=== PATIENT | female | born 1950 | race Hispanic/Latino ===

== ENCOUNTER → 2019-11-26 09:07 | Outpatient (CLI) | payer MEDICARE, MEDICAID, SELFPAY ==
[2019-11-26 10:43] LABS: Alanine Aminotransferase 58 IU/L (<35); Albumin 4.1 g/dL (3.5-5.0); Albumin Globulin Ratio 1.3 (1.0-2.8); Alkaline Phosphatase 91 U/L (38-126); Aspartate Aminotransferase 40 IU/L (14-36); Bilirubin Total 0.5 mg/dL (0.2-1.3); Blood Urea Nitrogen 14 mg/dL (7-17); Calcium 9.3 mg/dL (8.4-10.2); Carbon Dioxide 28 mmol/L (22-32); Chloride 101 mmol/L (98-107); Cholesterol 173 mg/dL (140-199); Estimated Glomerular Filt Rate > 60.0 mL/min (>60); Globulin 3.2 g/dL (1.7-4.1); Glucose 287 mg/dL (80-110); HDL Cholesterol 32 mg/dL (40-60); HEMOLYSIS < 15 (0-50); LDL Cholesterol Calculated 102 mg/dL (<100); Potassium 4.8 mmol/L (3.4-5.1); Sodium 138 mmol/L (137-145); Total Protein 7.3 g/dL (6.3-8.2); Triglycerides 194 mg/dL (35-150)
== END ==
PROVIDERS: PCP Nurse Practitioner; Referring Provider Nurse Practitioner; Visit Provider Nurse Practitioner
DX: E78.5 Hyperlipidemia, unspecified (principal); I10 Essential (primary) hypertension; Z91.14 Patient's other noncompliance with medication regimen
CPT/HCPCS: 36415; 80053; 80061; 84439; 84443; 84481

== ENCOUNTER → 2020-03-15 09:14 | Outpatient (CLI) | payer MEDICARE, MEDICAID, SELFPAY ==
[2020-03-15 10:00] LABS: Hemoglobin A1C% w Est Avg Glu 7.9 % (4.0-6.0)
[2020-03-15 10:34] LABS: Alanine Aminotransferase 65 IU/L (<35); Albumin 4.5 g/dL (3.5-5.0); Albumin Globulin Ratio 1.5 (1.0-2.8); Alkaline Phosphatase 66 U/L (38-126); Aspartate Aminotransferase 45 IU/L (14-36); Bilirubin Total 0.5 mg/dL (0.2-1.3); Bilirubin Unconjugated 0.5 mg/dL (0.0-1.1); Cholesterol 118 mg/dL (140-199); Glucose 151 mg/dL (80-110); HDL Cholesterol 38 mg/dL (40-60); HEMOLYSIS < 15 (0-50); LDL Cholesterol Calculated 45 mg/dL (<100); Total Protein 7.5 g/dL (6.3-8.2); Triglycerides 177 mg/dL (35-150)
[2020-03-17 08:36] LABS: HBsAg Screen Negative (Negative); HCV RNA 26300000 IU/mL (.); Hepatitis A Antibody IgM Negative (Negative); Hepatitis B Core Antibody IgM Negative (Negative); Hepatitis C Antibody >11.0 s/co ratio (0.0-0.9); Hepatitis C Quant See Final Results IU/mL (.)
== END ==
PROVIDERS: PCP Nurse Practitioner; Referring Provider Nurse Practitioner; Visit Provider Nurse Practitioner
DX: E78.5 Hyperlipidemia, unspecified (principal); I10 Essential (primary) hypertension; E11.9 Type 2 diabetes mellitus without complications
CPT/HCPCS: 36415; 80061; 80074; 80076; 82947; 83036

== ENCOUNTER → 2020-04-09 09:25 | Outpatient (CLI) | payer MEDICARE, MEDICAID, SELFPAY ==
[2020-04-09 10:49] LABS: Add Manual Diff / Slide Review NO; Basophils Absolute Auto 0 /uL (0-100); Basophils Percent Auto 1.2 % (0-2); Eosinophils Absolute Auto 200 /uL (0-450); Hematocrit 37.4 % (36-46); Hemoglobin 12.6 g/dL (12.0-16.0); Lymphocytes Absolute Auto 1400 /uL (1100-4500); Lymphocytes Percent Auto 36.9 % (25-40); Mean Corpuscular HGB Conc 33.7 % (30-36); Mean Corpuscular Volume 91.8 fL (80-100); Monocytes Absolute Auto 200 /uL (0-900); Monocytes Percent Auto 6.5 % (3-14); Neutrophils Absolute Auto 1900 /uL (1500-7000); Neutrophils Percent Auto 50.4 % (50-75); Platelet Count 169 X10^3/uL (150-400); Red Blood Cell Count 4.08 X10^6/uL (4.0-5.2); Red Cell Distribution Width 12.5 % (11.6-14.8); White Blood Cell Count 3.8 X10^3/uL (4.5-11.0)
[2020-04-09 10:59] LABS: Alanine Aminotransferase 76 IU/L (<35); Albumin 4.3 g/dL (3.5-5.0); Albumin Globulin Ratio 1.6 (1.0-2.8); Alkaline Phosphatase 62 U/L (38-126); Aspartate Aminotransferase 55 IU/L (14-36); BUN Creatinine Ratio 23.5 (6-22); Bilirubin Total 0.5 mg/dL (0.2-1.3); Blood Urea Nitrogen 16 mg/dL (7-17); Calcium 9.4 mg/dL (8.4-10.2); Carbon Dioxide 24 mmol/L (22-32); Chloride 104 mmol/L (98-107); Estimated Glomerular Filt Rate > 60.0 mL/min (>60); Globulin 2.7 g/dL (1.7-4.1); Glucose 159 mg/dL (80-110); HEMOLYSIS < 15 (0-50); Potassium 4.2 mmol/L (3.4-5.1); Sodium 138 mmol/L (137-145)
[2020-04-10 07:36] LABS: Hepatitis B Surf Ab Qualitativ Non Reactive (.)
[2020-04-15 19:10] LABS: Hepatitis C Genoype 1a (.)
== END ==
PROVIDERS: PCP Nurse Practitioner; Referring Provider Nurse Practitioner; Visit Provider Physician Assistant
DX: B18.2 Chronic viral hepatitis C (principal)
CPT/HCPCS: 36415; 80053; 85025; 86706

== ENCOUNTER → 2020-05-26 08:08 | Outpatient (CLI) | payer MEDICARE, MEDICAID, SELFPAY ==
[2020-05-26 08:39] LABS: Hemoglobin A1C% w Est Avg Glu 8.9 % (4.0-6.0)
[2020-05-26 08:49] LABS: Alanine Aminotransferase 82 IU/L (<35); Albumin 4.2 g/dL (3.5-5.0); Albumin Globulin Ratio 1.4 (1.0-2.8); Alkaline Phosphatase 64 U/L (38-126); Aspartate Aminotransferase 47 IU/L (14-36); Bilirubin Total 0.5 mg/dL (0.2-1.3); Bilirubin Unconjugated 0.4 mg/dL (0.0-1.1); Cholesterol 115 mg/dL (140-199); Globulin 2.9 g/dL (1.7-4.1); Glucose 197 mg/dL (80-110); HDL Cholesterol 43 mg/dL (40-60); HEMOLYSIS < 15 (0-50); LDL Cholesterol Calculated 41 mg/dL (<100); Total Protein 7.1 g/dL (6.3-8.2); Triglycerides 157 mg/dL (35-150)
== END ==
PROVIDERS: PCP Nurse Practitioner; Referring Provider Nurse Practitioner; Visit Provider Nurse Practitioner
DX: E78.5 Hyperlipidemia, unspecified (principal); I10 Essential (primary) hypertension; M81.0 Age-related osteoporosis without current pathological fracture; R76.8 Other specified abnormal immunological findings in serum
CPT/HCPCS: 36415; 80061; 80076; 82947; 83036

== ENCOUNTER → 2020-07-13 09:01 | Outpatient (CLI) | payer MEDICARE, MEDICAID, SELFPAY ==
[2020-07-13 09:30] LABS: Add Manual Diff / Slide Review NO; Basophils Absolute Auto 0 /uL (0-100); Basophils Percent Auto 0.7 % (0-2); Eosinophils Absolute Auto 200 /uL (0-450); Eosinophils Percent Auto 5.3 % (2-4); Hematocrit 38.7 % (36-46); Hemoglobin 13.2 g/dL (12.0-16.0); Lymphocytes Absolute Auto 1800 /uL (1100-4500); Lymphocytes Percent Auto 41.6 % (25-40); Mean Corpuscular Hemoglobin 30.5 PG (26-34); Mean Corpuscular Volume 89.7 fL (80-100); Monocytes Absolute Auto 400 /uL (0-900); Monocytes Percent Auto 8.4 % (3-14); Neutrophils Absolute Auto 1900 /uL (1500-7000); Platelet Count 174 X10^3/uL (150-400); Red Blood Cell Count 4.32 X10^6/uL (4.0-5.2); Red Cell Distribution Width 12.1 % (11.6-14.8); White Blood Cell Count 4.3 X10^3/uL (4.5-11.0)
[2020-07-13 09:49] LABS: Alanine Aminotransferase 20 IU/L (<35); Albumin 4.4 g/dL (3.5-5.0); Albumin Globulin Ratio 1.2 (1.0-2.8); Alkaline Phosphatase 73 U/L (38-126); Aspartate Aminotransferase 25 IU/L (14-36); BUN Creatinine Ratio 31.3 (6-22); Bilirubin Total 0.4 mg/dL (0.2-1.3); Blood Urea Nitrogen 26 mg/dL (7-17); Calcium 9.7 mg/dL (8.4-10.2); Carbon Dioxide 25 mmol/L (22-32); Chloride 103 mmol/L (98-107); Estimated Glomerular Filt Rate > 60.0 mL/min (>60); Globulin 3.6 g/dL (1.7-4.1); Glucose 142 mg/dL (80-110); HEMOLYSIS < 15 (0-50); Potassium 4.5 mmol/L (3.4-5.1); Sodium 139 mmol/L (137-145)
== END ==
PROVIDERS: PCP Nurse Practitioner; Referring Provider Nurse Practitioner; Visit Provider Nurse Practitioner
DX: B18.2 Chronic viral hepatitis C (principal)
CPT/HCPCS: 36415; 80053; 85025; 87522

== ENCOUNTER → 2020-08-10 07:16 | Outpatient (CLI) | payer MEDICARE, MEDICAID, SELFPAY ==
[2020-08-10 08:49] LABS: Add Manual Diff / Slide Review NO; Basophils Absolute Auto 0 /uL (0-100); Basophils Percent Auto 0.6 % (0-2); Eosinophils Absolute Auto 200 /uL (0-450); Eosinophils Percent Auto 4.7 % (2-4); Hematocrit 38.1 % (36-46); Hemoglobin 12.9 g/dL (12.0-16.0); Lymphocytes Absolute Auto 1900 /uL (1100-4500); Lymphocytes Percent Auto 40.7 % (25-40); Mean Corpuscular HGB Conc 33.9 % (30-36); Mean Corpuscular Hemoglobin 30.7 PG (26-34); Mean Corpuscular Volume 90.6 fL (80-100); Monocytes Absolute Auto 300 /uL (0-900); Monocytes Percent Auto 6.9 % (3-14); Neutrophils Absolute Auto 2200 /uL (1500-7000); Neutrophils Percent Auto 47.1 % (50-75); Platelet Count 183 X10^3/uL (150-400); Red Blood Cell Count 4.21 X10^6/uL (4.0-5.2); Red Cell Distribution Width 12.3 % (11.6-14.8); White Blood Cell Count 4.8 X10^3/uL (4.5-11.0)
[2020-08-10 09:07] LABS: Alanine Aminotransferase 15 IU/L (<35); Albumin 4.2 g/dL (3.5-5.0); Albumin Globulin Ratio 1.2 (1.0-2.8); Alkaline Phosphatase 70 U/L (38-126); Aspartate Aminotransferase 20 IU/L (14-36); BUN Creatinine Ratio 40.3 (6-22); Bilirubin Total 0.4 mg/dL (0.2-1.3); Blood Urea Nitrogen 25 mg/dL (7-17); Calcium 9.3 mg/dL (8.4-10.2); Carbon Dioxide 28 mmol/L (22-32); Chloride 104 mmol/L (98-107); Cholesterol 143 mg/dL (140-199); Estimated Glomerular Filt Rate > 60.0 mL/min (>60); Globulin 3.5 g/dL (1.7-4.1); Glucose 121 mg/dL (80-110); HDL Cholesterol 30 mg/dL (40-60); HEMOLYSIS < 15 (0-50); LDL Cholesterol Calculated 80 mg/dL (<100); Sodium 137 mmol/L (137-145); Total Protein 7.7 g/dL (6.3-8.2); Triglycerides 164 mg/dL (35-150)
[2020-08-10 09:22] LABS: Hemoglobin A1C% w Est Avg Glu 7.6 % (4.0-6.0)
[2020-08-10 09:25] LABS: Microalbumi Creatinin Ratio Ur 4.4 ug/mg CR (<30); Microalbumin Urine Random 0.8 mg/dL (0-1.6)
[2020-08-10 09:52] LABS: Hep C Virus Ab w/Reflex Quant REACTIVE s/c (NEGATIVE)
== END ==
PROVIDERS: PCP Nurse Practitioner; Referring Provider Physician Assistant; Visit Provider Physician Assistant
DX: B18.2 Chronic viral hepatitis C (principal); E78.5 Hyperlipidemia, unspecified; I10 Essential (primary) hypertension; Z79.899 Other long term (current) drug therapy
CPT/HCPCS: 36415; 80053; 80061; 82043; 82570; 83036; 85025; 86803

== ENCOUNTER → 2020-08-17 | Outpatient (CLI) | payer MEDICARE, MEDICAID, SELFPAY | PROVIDERS: PCP Nurse Practitioner; Referring Provider Physician Assistant; Visit Provider Physician Assistant | DX: B18.2 Chronic viral hepatitis C (principal) | CPT/HCPCS: 87522 ==

== ENCOUNTER → 2020-10-26 14:31 | Outpatient (CLI) | payer MEDICARE, MEDICAID, SELFPAY ==
[2020-10-26] MEDS: COVID-19 VACC #1, MRNA(MOD) 100 MCG/0.5 ML VIAL IM (14:38)
== END ==
PROVIDERS: PCP Nurse Practitioner; Visit Provider Internal Medicine
DX: Z23 Encounter for immunization (principal)
CPT/HCPCS: 0011A; 91301

== ENCOUNTER → 2020-11-15 08:24 | Outpatient (CLI) | payer MEDICARE, MEDICAID, SELFPAY ==
[2020-11-15 08:55] LABS: Add Manual Diff / Slide Review NO; Basophils Absolute Auto 0 /uL (0-100); Basophils Percent Auto 0.8 % (0-2); Eosinophils Absolute Auto 300 /uL (0-450); Eosinophils Percent Auto 5.6 % (2-4); Hematocrit 39.3 % (36-46); Hemoglobin 13.1 g/dL (12.0-16.0); Lymphocytes Absolute Auto 2000 /uL (1100-4500); Lymphocytes Percent Auto 41.9 % (25-40); Mean Corpuscular HGB Conc 33.4 % (30-36); Mean Corpuscular Hemoglobin 30.6 PG (26-34); Mean Corpuscular Volume 91.6 fL (80-100); Monocytes Absolute Auto 300 /uL (0-900); Monocytes Percent Auto 5.8 % (3-14); Neutrophils Absolute Auto 2200 /uL (1500-7000); Neutrophils Percent Auto 45.9 % (50-75); Platelet Count 175 X10^3/uL (150-400); Red Blood Cell Count 4.29 X10^6/uL (4.0-5.2); Red Cell Distribution Width 12.4 % (11.6-14.8); White Blood Cell Count 4.8 X10^3/uL (4.5-11.0)
[2020-11-15 09:16] LABS: Alanine Aminotransferase 16 IU/L (<35); Albumin 4.3 g/dL (3.5-5.0); Albumin Globulin Ratio 1.3 (1.0-2.8); Alkaline Phosphatase 64 U/L (38-126); Aspartate Aminotransferase 21 IU/L (14-36); BUN Creatinine Ratio 26.8 (6-22); Bilirubin Total 0.3 mg/dL (0.2-1.3); Blood Urea Nitrogen 19 mg/dL (7-17); Calcium 9.2 mg/dL (8.4-10.2); Carbon Dioxide 28 mmol/L (22-32); Chloride 105 mmol/L (98-107); Estimated Glomerular Filt Rate > 60.0 mL/min (>60); Globulin 3.4 g/dL (1.7-4.1); Glucose 131 mg/dL (80-110); HEMOLYSIS < 15 (0-50); Potassium 4.4 mmol/L (3.4-5.1); Sodium 137 mmol/L (137-145); Total Protein 7.7 g/dL (6.3-8.2)
== END ==
PROVIDERS: Physician Assistant; PCP Nurse Practitioner; Referring Provider Nurse Practitioner Family; Visit Provider Nurse Practitioner
DX: B18.2 Chronic viral hepatitis C (principal)
CPT/HCPCS: 36415; 80053; 82248; 85025; 87522

== ENCOUNTER → 2020-11-23 08:22 | Outpatient (CLI) | payer MEDICARE, MEDICAID, SELFPAY ==
[2020-11-23 09:11] LABS: Hemoglobin A1C% w Est Avg Glu 6.4 % (4.0-6.0)
[2020-11-23 09:17] LABS: Alanine Aminotransferase 16 IU/L (<35); Albumin 4.4 g/dL (3.5-5.0); Albumin Globulin Ratio 1.5 (1.0-2.8); Alkaline Phosphatase 65 U/L (38-126); Aspartate Aminotransferase 20 IU/L (14-36); Bilirubin Total 0.3 mg/dL (0.2-1.3); Bilirubin Unconjugated 0.4 mg/dL (0.0-1.1); Cholesterol 118 mg/dL (140-199); Glucose 118 mg/dL (80-110); HDL Cholesterol 46 mg/dL (40-60); HEMOLYSIS < 15 (0-50); LDL Cholesterol Calculated 37 mg/dL (<100); Total Protein 7.4 g/dL (6.3-8.2); Triglycerides 175 mg/dL (35-150)
== END ==
PROVIDERS: PCP Nurse Practitioner; Referring Provider Nurse Practitioner; Visit Provider Nurse Practitioner
DX: E78.5 Hyperlipidemia, unspecified (principal); Z79.899 Other long term (current) drug therapy; I10 Essential (primary) hypertension; E78.2 Mixed hyperlipidemia; Z01.83 Encounter for blood typing; Z23 Encounter for immunization
CPT/HCPCS: 36415; 80061; 80076; 82947; 83036; 86900; 86901

== ENCOUNTER → 2020-11-23 14:53 | Outpatient (CLI) | payer MEDICARE, MEDICAID, SELFPAY ==
[2020-11-23] MEDS: COVID-19 VACC #2, MRNA(MOD) 100 MCG/0.5 ML VIAL IM (15:03)
== END ==
PROVIDERS: PCP Nurse Practitioner; Visit Provider Internal Medicine
DX: Z23 Encounter for immunization (principal)
CPT/HCPCS: 0012A; 36415; 80061; 80076; 82947; 83036; 86900; 86901; 91301

== ENCOUNTER → 2020-12-06 14:28 | Outpatient (CLI) | payer MEDICARE, MEDICAID, SELFPAY ==
--- NOTE | 2020-12-06 14:30 | DI.US.S_ITS ---
PROCEDURE: US CHEST COMPARISON: None. INDICATIONS: chest mass FINDINGS: Focused ultrasound examination of upper chest at patient's reported area of palpable lump shows no diffuse soft tissue mass or fluid collection. IMPRESSION: No discrete soft tissue mass or fluid collection is seen in anterior upper chest wall. Dictated by: Walker Cornejo M.D. on 12/06/2020 at 15:10 Approved by: Walker Cornejo M.D. on 12/06/2020 at 15:12
== END ==
PROVIDERS: PCP Nurse Practitioner; Referring Provider Nurse Practitioner; Visit Provider Nurse Practitioner
DX: R22.2 Localized swelling, mass and lump, trunk (principal)
CPT/HCPCS: 76604

== ENCOUNTER → 2021-04-13 07:52 | Outpatient (CLI) | payer MEDICARE, MEDICAID, SELFPAY ==
[2021-04-13 10:11] LABS: Alanine Aminotransferase 18 IU/L (<35); Albumin 4.3 g/dL (3.5-5.0); Albumin Globulin Ratio 1.3 (1.0-2.8); Alkaline Phosphatase 61 U/L (38-126); Aspartate Aminotransferase 22 IU/L (14-36); BUN Creatinine Ratio 35.8 (6-22); Bilirubin Total 0.3 mg/dL (0.2-1.3); Blood Urea Nitrogen 24 mg/dL (7-17); Calcium 9.5 mg/dL (8.4-10.2); Carbon Dioxide 27 mmol/L (22-32); Chloride 105 mmol/L (98-107); Cholesterol 132 mg/dL (140-199); Estimated Glomerular Filt Rate > 60.0 mL/min (>60); Globulin 3.3 g/dL (1.7-4.1); Glucose 90 mg/dL (80-110); HDL Cholesterol 47 mg/dL (40-60); HEMOLYSIS < 15 (0-50); Hemoglobin A1C% w Est Avg Glu 6.6 % (4.0-6.0); LDL Cholesterol Calculated 41 mg/dL (<100); Potassium 4.3 mmol/L (3.4-5.1); Sodium 138 mmol/L (137-145); Total Protein 7.6 g/dL (6.3-8.2); Triglycerides 221 mg/dL (35-150)
[2021-04-13 10:37] LABS: Free T3, Triiodothyronine Free 3.82 pg/mL (2.77-5.27); Free T4, Direct Thyroxine 0.98 ng/dL (0.78-2.19)
[2021-04-13 10:51] LABS: Thyroid Stimulating Hormone 1.49 uIU/mL (0.47-4.68)
[2021-04-13 11:42] LABS: Creatinine Urine Random 147.4 mg/dL
[2021-04-13 11:47] LABS: Microalbumi Creatinin Ratio Ur 4.7 ug/mg CR (<30); Microalbumin Urine Random 0.7 mg/dL (0-1.6)
== END ==
PROVIDERS: PCP Nurse Practitioner; Referring Provider Nurse Practitioner; Visit Provider Nurse Practitioner
DX: E78.2 Mixed hyperlipidemia (principal); Z79.899 Other long term (current) drug therapy; I10 Essential (primary) hypertension; F41.9 Anxiety disorder, unspecified; R76.8 Other specified abnormal immunological findings in serum
CPT/HCPCS: 36415; 80053; 80061; 82043; 82570; 83036; 84439; 84443; 84481

== ENCOUNTER → 2021-06-02 08:21 | Outpatient (CLI) | payer MEDICARE, MEDICAID, SELFPAY | PROVIDERS: PCP Nurse Practitioner; Referring Provider Physician Assistant; Visit Provider Physician Assistant | DX: B18.2 Chronic viral hepatitis C (principal) | CPT/HCPCS: 36415; 87522 ==

== ENCOUNTER → 2021-06-10 14:26 | Outpatient (CLI) | payer MEDICARE, MEDICAID, SELFPAY ==
--- NOTE | 2021-06-10 14:27 | DI.MG.S_ITS ---
BILATERAL DIGITAL SCREENING MAMMOGRAM 3D/2D WITH CAD: 06/10/2021 CLINICAL: Routine screening. Comparison is made to exams dated: 11/02/2011 mammogram, 12/31/2012 mammogram, and 04/19/2017 mammogram - [facility]. The tissue of both breasts is heterogeneously dense. This may lower the sensitivity of mammography. Current study was also evaluated with a Computer Aided Detection (CAD) system. No significant masses, calcifications, or other findings are seen in either breast. There has been no significant interval change. IMPRESSION: NEGATIVE There is no mammographic evidence of malignancy. A 1 year screening mammogram is recommended. This exam was interpreted at Station ID: [id number]. NOTE: For mammograms, a report in lay terms will be sent to the patient. Approximately 15% of breast malignancies will not be visualized mammographically. In the management of a palpable breast mass, a negative mammogram must not discourage biopsy of a clinically suspicious lesion. Electronically Signed By: Antelmo martines/saman:06/10/2021 15:47:30 letter sent: Normal Exam ACR BI-RADS Category 1: Negative 3341F
== END ==
PROVIDERS: PCP Nurse Practitioner; Referring Provider Nurse Practitioner; Visit Provider Nurse Practitioner
DX: Z12.31 Encounter for screening mammogram for malignant neoplasm of breast (principal)
CPT/HCPCS: 77063; 77067

== ENCOUNTER → 2021-08-19 13:07 | Outpatient (CLI) | payer MEDICARE, MEDICAID, SELFPAY ==
[2021-08-19] MEDS: COVID-19 VACC #3, MRNA(MOD) 50 MCG/0.25 ML VIAL IM (13:15)
== END ==
PROVIDERS: PCP Nurse Practitioner; Visit Provider Internal Medicine
DX: Z23 Encounter for immunization (principal)
CPT/HCPCS: 0013A; 91301

== ENCOUNTER → 2021-11-17 08:28 | Outpatient (CLI) | payer MEDICARE, MEDICAID, SELFPAY ==
[2021-11-17 09:21] LABS: Hematocrit 38.3 % (36-46)
[2021-11-17 09:36] LABS: Alanine Aminotransferase 20 IU/L (<35); Albumin 4.6 g/dL (3.5-5.0); Albumin Globulin Ratio 1.5 (1.0-2.8); Alkaline Phosphatase 59 U/L (38-126); Aspartate Aminotransferase 25 IU/L (14-36); BUN Creatinine Ratio 25.3 (6-22); Bilirubin Total 0.5 mg/dL (0.2-1.3); Blood Urea Nitrogen 20 mg/dL (7-17); Calcium 9.3 mg/dL (8.4-10.2); Carbon Dioxide 26 mmol/L (22-32); Chloride 105 mmol/L (98-107); Cholesterol 130 mg/dL (140-199); Estimated Glomerular Filt Rate > 60.0 mL/min (>60); Globulin 3.1 g/dL (1.7-4.1); Glucose 124 mg/dL (80-110); HDL Cholesterol 43 mg/dL (40-60); HEMOLYSIS < 15 (0-50); LDL Cholesterol Calculated 35 mg/dL (<100); Potassium 4.4 mmol/L (3.4-5.1); Sodium 139 mmol/L (137-145); Total Protein 7.7 g/dL (6.3-8.2); Triglycerides 260 mg/dL (35-150)
[2021-11-17 11:01] LABS: Creatinine Urine Random 189.8 mg/dL
[2021-11-17 11:03] LABS: Microalbumi Creatinin Ratio Ur 13.1 ug/mg CR (<30); Microalbumin Urine Random 2.5 mg/dL (0-1.6)
== END ==
PROVIDERS: PCP Nurse Practitioner; Referring Provider Nurse Practitioner; Visit Provider Nurse Practitioner
DX: E78.2 Mixed hyperlipidemia (principal); I10 Essential (primary) hypertension; Z79.899 Other long term (current) drug therapy
CPT/HCPCS: 36415; 80053; 80061; 82043; 82570; 85014; 85018

== ENCOUNTER → 2021-11-28 09:40 | Outpatient (CLI) | payer MEDICARE, MEDICAID, SELFPAY ==
[2021-11-28 10:18] LABS: Hemoglobin A1C% w Est Avg Glu 6.6 % (4.0-6.0)
[2021-11-28 11:15] LABS: Appearance Urine UA CLEAR; Bilirubin Urine UA NEGATIVE (NEGATIVE); Color Urine UA YELLOW; Glucose Urine UA NEGATIVE (Negative); Ketones Urine UA NEGATIVE (NEGATIVE); Leukocyte Esterase Urine UA TRACE (NEGATIVE); Nitrite Urine UA NEGATIVE (Negative); Occult Blood Urine UA 1+ (Negative); Protein Urine UA NEGATIVE (Negative); Specific Gravity Urine UA >=1.030 (1.000-1.035); Urobilinogen Urine UA 0.2 E.U./dL (0.2)
[2021-11-28 11:51] LABS: Bacteria Urine Few (2-10); Calcium Oxalate Crystals Urine Few; Hyaline Casts Urine 1-5/LPF; RBC Urine 0-1/HPF (0-5/HPF); Squamous Epithelial Cell Urine 1-5 /HPF (0-5/HPF); WBC Urine 1-5/HPF (0-5/HPF)
[2021-11-28 11:52] LABS: Culture Indicated Urine Specimen Cultured
== END ==
PROVIDERS: PCP Nurse Practitioner; Referring Provider Nurse Practitioner; Visit Provider Nurse Practitioner
DX: R32 Unspecified urinary incontinence (principal); E78.2 Mixed hyperlipidemia; I10 Essential (primary) hypertension; E11.9 Type 2 diabetes mellitus without complications; R73.01 Impaired fasting glucose
CPT/HCPCS: 36415; 81001; 83036; 87077; 87086; 87186

== ENCOUNTER → 2022-02-28 08:48 | Outpatient (CLI) | payer MEDICARE, MEDICAID, SELFPAY ==
[2022-02-28 10:56] LABS: Creatinine Urine Random 274.8 mg/dL
[2022-02-28 10:59] LABS: Microalbumi Creatinin Ratio Ur 8.7 ug/mg CR (<30); Microalbumin Urine Random 2.4 mg/dL (0-1.6)
[2022-02-28 11:09] LABS: Alanine Aminotransferase 19 IU/L (<35); Albumin Globulin Ratio 1.5 (1.0-2.8); Alkaline Phosphatase 55 U/L (38-126); Aspartate Aminotransferase 24 IU/L (14-36); BUN Creatinine Ratio 28.2 (6-22); Bilirubin Total 0.4 mg/dL (0.2-1.3); Blood Urea Nitrogen 22 mg/dL (7-17); Calcium 9.6 mg/dL (8.4-10.2); Carbon Dioxide 25 mmol/L (22-32); Chloride 102 mmol/L (98-107); Cholesterol 135 mg/dL (140-199); Estimated Glomerular Filt Rate > 60 mL/min (>60); Globulin 3.4 g/dL (1.7-4.1); Glucose 107 mg/dL (80-110); HDL Cholesterol 51 mg/dL (40-60); HEMOLYSIS < 15 (0-50); LDL Cholesterol Calculated 39 mg/dL (<100); Potassium 4.5 mmol/L (3.4-5.1); Sodium 139 mmol/L (137-145); Total Protein 8.4 g/dL (6.3-8.2); Triglycerides 226 mg/dL (35-150)
== END ==
PROVIDERS: PCP Nurse Practitioner; Referring Provider Nurse Practitioner; Visit Provider Nurse Practitioner
DX: Z79.899 Other long term (current) drug therapy (principal); I10 Essential (primary) hypertension; E78.2 Mixed hyperlipidemia
CPT/HCPCS: 36415; 80053; 80061; 82043; 82570; 83036

== ENCOUNTER → 2022-04-24 13:57 | Outpatient (CLI) | payer MEDICARE, MEDICAID, SELFPAY ==
--- NOTE | 2022-04-24 | DI.ECHO.S_ITS ---
[place] [facility]---------+ [facility] +---------+ : : [address] : : : : [id number] : : : : Phone: [phone]---------+ Echocardiogram Report + + :Name: MARCIAL TINOCO Study Date: 04/24/2022 Height: 64 in : :[facility] ReadingLocation: Weight: 178 lb : : Gender: Female BSA: 1.9 m2 : :: 1950 Age: 71 yrs BP: 146/76 mmHg: :Reason For Study: Hypertension : :Ordering Physician: KRYSTA, : :ANA Performed By: Rafi Tavera : :Referring: ANA CHAPARRO : + + Interpretation Summary Normal left ventricle size with hyperdynamic function and ejection fraction 70-75%. Mild aortic valve sclerosis. Mild tricuspid regurgitation. Procedure: A two-dimensional transthoracic echocardiogram with color flow and Doppler was performed. The study quality was technically adequate. There is no prior echocardiogram noted for this patient. Left Ventricle: The left ventricle is normal in size and wall thickness. The left ventricle is hyperdynamic. The ejection fraction is estimated to be 70- 75%. There are no focal wall motion abnormalities. Right Ventricle: The right ventricle is normal in size and function. Atria: Both atria are normal in size. The interatrial septum grossly appears intact with no obvious evidence for an atrial septal defect. Mitral Valve: The mitral valve is normal in structure and function. There is trace mitral regurgitation. Aortic Valve: There is mild aortic valve sclerosis. No aortic regurgitation is present. Tricuspid Valve: The tricuspid valve is normal in structure and function. There is mild tricuspid regurgitation. The right ventricular systolic pressure is estimated to be at least 28 mmHg based on an estimated right atrial pressure of 3 mm Hg. Pulmonic Valve: The pulmonic valve is not well seen, but is grossly normal. Great Vessels: The aortic root is normal size. The dimensions of the ascending aorta are normal. The IVC is of normal diameter and collapses greater than 50% with a sniff. This suggests a low right atrial pressure of 3 mm Hg. Pericardium/ Pleura There is no pericardial effusion. There is no pleural effusion. MMode/2D Measurements & Calculations LVIDd: 4.7 cm LVOT diam: 1.8 cm LVIDs: 2.9 cm Ao root diam: 3.0 cm FS: 37.6 % asc Aorta Diam: 2.7 cm IVSd: 0.95 cm LVPWd: 0.95 cm LV ibarra. diameter/BSA (cm/m^2): 2.5 LV sys. diameter/BSA (cm/m^2): 1.6 LA dimension: 3.2 cm RA long axis: 4.5 cm LA A2 area: 12.2 cm2 IVC diam: 2.0 cm LA A4 area: 14.7 cm2 LA length (vol): 4.7 cm LA vol: 32.4 ml LA vol index: 17.4 ml/m2 TAPSE_phl: 2.1 cm Doppler Measurements & Calculations Ao V2 max: 151.0 cm/sec LVOT Max Matthieu: 102.0 cm/sec Ao V2 mean: 110.0 cm/sec LV V1 max P.2 mmHg Ao max P.0 mmHg LV V1 VTI: 21.9 cm Ao mean P.0 mmHg PILO(I,D): 1.9 cm2 Ao V2 VTI: 29.0 cm PILO(V,D): 1.7 cm2 sev ratio: 0.76 PILO indexed to BSA (cm^2/m^2): 1.0 MV E max matthieu: 81.8 cm/sec TR max matthieu: 248.0 cm/sec MV A max matthieu: 108.0 cm/sec TR max P.6 mmHg MV E/A: 0.76 Med Peak E' Matthieu: 6.2 cm/sec E/E' med: 13.2 Lat Peak E' Matthieu: 9.2 cm/sec E/E' lat: 8.9 E/e' average: 11.1 MV dec time: 0.17 sec SV(LVOT): 55.7 ml AV VR_phl: 0.68 PILO(VTI)/BSA_phl: 1.0 MV P1/2t-pr_phl: 51.0 msec Electronically signed by: Mayra Edward on Reading Physician:04/24/2022 02:45 PM
== END ==
PROVIDERS: PCP Nurse Practitioner; Referring Provider Nurse Practitioner; Visit Provider Nurse Practitioner
DX: I08.2 Rheumatic disorders of both aortic and tricuspid valves (principal); I10 Essential (primary) hypertension
CPT/HCPCS: 93005; 93306

== ENCOUNTER → 2022-05-30 08:09 | Outpatient (CLI) | payer MEDICARE, MEDICAID, SELFPAY ==
[2022-05-30 08:42] LABS: Hemoglobin A1C% w Est Avg Glu 6.7 % (4.0-6.0)
[2022-05-30 09:11] LABS: Alanine Aminotransferase 20 IU/L (<35); Albumin 4.8 g/dL (3.5-5.0); Albumin Globulin Ratio 1.5 (1.0-2.8); Alkaline Phosphatase 57 U/L (38-126); Aspartate Aminotransferase 21 IU/L (14-36); BUN Creatinine Ratio 31.7 (6-22); Bilirubin Total 0.5 mg/dL (0.2-1.3); Blood Urea Nitrogen 26 mg/dL (7-17); Calcium 9.4 mg/dL (8.4-10.2); Carbon Dioxide 24 mmol/L (22-32); Chloride 104 mmol/L (98-107); Cholesterol 129 mg/dL (140-199); Estimated Glomerular Filt Rate > 60 mL/min (>60); Globulin 3.1 g/dL (1.7-4.1); Glucose 131 mg/dL (80-110); HDL Cholesterol 48 mg/dL (40-60); HEMOLYSIS < 15 (0-50); LDL Cholesterol Calculated 31 mg/dL (<100); Potassium 4.1 mmol/L (3.4-5.1); Sodium 139 mmol/L (137-145); Total Protein 7.9 g/dL (6.3-8.2); Triglycerides 249 mg/dL (35-150)
[2022-05-30 09:21] LABS: Free T3, Triiodothyronine Free 4.26 pg/mL (2.77-5.27); Free T4, Direct Thyroxine 1.09 ng/dL (0.78-2.19)
== END ==
PROVIDERS: PCP Nurse Practitioner; Referring Provider Nurse Practitioner; Visit Provider Nurse Practitioner
DX: Z79.899 Other long term (current) drug therapy (principal); E78.2 Mixed hyperlipidemia; F41.9 Anxiety disorder, unspecified; I10 Essential (primary) hypertension
CPT/HCPCS: 36415; 80053; 80061; 83036; 84439; 84443; 84481

== ENCOUNTER → 2022-06-23 11:03 | Outpatient (CLI) | payer MEDICARE, MEDICAID, SELFPAY ==
--- NOTE | 2022-06-23 | DI.MG.S_ITS ---
BILATERAL DIGITAL SCREENING MAMMOGRAM 3D/2D WITH CAD: 06/23/2022 CLINICAL: Routine screening. Comparison is made to exams dated: 06/10/2021 mammogram - [facility], 04/19/2017 mammogram, and 12/31/2012 mammogram - [facility]. Both breasts are heterogeneously dense, which may obscure small masses (category c / 51-75% glandular tissue). Current study was also evaluated with a Computer Aided Detection (CAD) system. No significant masses, calcifications, or other findings are seen in either breast. There has been no significant interval change. IMPRESSION: NEGATIVE There is no mammographic evidence of malignancy. A 1 year screening mammogram is recommended. Based on the Tyrer Cuzick model (a risk assessment model) the patient's lifetime risk is 3.2% and her 10 year risk is 2.0%. According to the ACR, ACS, and NCCN guidelines, an annual breast MRI exam along with mammogram is recommended if the patient's lifetime risk is 20% or greater. This exam was interpreted at Station ID: [id number]. NOTE: For mammograms, a report in lay terms will be sent to the patient. Approximately 15% of breast malignancies will not be visualized mammographically. In the management of a palpable breast mass, a negative mammogram must not discourage biopsy of a clinically suspicious lesion. Electronically Signed By: Manas Rivera M.D., jr/saman:06/23/2022 11:54:09 letter sent: Normal Exam ACR BI-RADS Category 1: Negative 3341F
== END ==
PROVIDERS: PCP Nurse Practitioner; Referring Provider Nurse Practitioner; Visit Provider Nurse Practitioner
DX: Z12.31 Encounter for screening mammogram for malignant neoplasm of breast (principal)
CPT/HCPCS: 77063; 77067

== ENCOUNTER → 2022-08-31 08:26 | Outpatient (CLI) | payer MEDICARE, MEDICAID, SELFPAY ==
[2022-08-31 09:35] LABS: Hematocrit 39.2 % (36-46); Mean Corpuscular HGB Conc 33.2 % (30-36); Mean Corpuscular Volume 90.4 fL (80-100); Platelet Count 188 X10^3/uL (150-400); Red Blood Cell Count 4.34 X10^6/uL (4.0-5.2); Red Cell Distribution Width 12.5 % (11.6-14.8); White Blood Cell Count 5.9 X10^3/uL (4.5-11.0)
[2022-08-31 09:43] LABS: Hemoglobin A1C% w Est Avg Glu 7.4 % (4.0-6.0)
[2022-08-31 09:55] LABS: Alanine Aminotransferase 26 IU/L (<35); Albumin 4.5 g/dL (3.5-5.0); Albumin Globulin Ratio 1.6 (1.0-2.8); Alkaline Phosphatase 66 U/L (38-126); Aspartate Aminotransferase 21 IU/L (14-36); BUN Creatinine Ratio 29.4 (6-22); Bilirubin Total 0.4 mg/dL (0.2-1.3); Blood Urea Nitrogen 20 mg/dL (7-17); Calcium 9.4 mg/dL (8.4-10.2); Carbon Dioxide 24 mmol/L (22-32); Chloride 103 mmol/L (98-107); Cholesterol 124 mg/dL (140-199); Estimated Glomerular Filt Rate > 60 mL/min (>60); Globulin 2.9 g/dL (1.7-4.1); Glucose 127 mg/dL (80-110); HDL Cholesterol 45 mg/dL (40-60); HEMOLYSIS < 15 (0-50); LDL Cholesterol Calculated 29 mg/dL (<100); Potassium 4.6 mmol/L (3.4-5.1); Sodium 138 mmol/L (137-145); Total Protein 7.4 g/dL (6.3-8.2); Triglycerides 250 mg/dL (35-150)
[2022-08-31 10:21] LABS: Thyroid Stimulating Hormone 1.43 uIU/mL (0.47-4.68)
== END ==
PROVIDERS: PCP Nurse Practitioner; Referring Provider Nurse Practitioner; Visit Provider Nurse Practitioner
DX: E78.2 Mixed hyperlipidemia (principal); I10 Essential (primary) hypertension
CPT/HCPCS: 36415; 80053; 80061; 83036; 84443; 85027

== ENCOUNTER → 2023-01-08 08:46 | Outpatient (CLI) | payer MEDICARE, MEDICAID, SELFPAY ==
[2023-01-08 10:32] LABS: Alanine Aminotransferase 21 IU/L (<35); Albumin 4.2 g/dL (3.5-5.0); Albumin Globulin Ratio 1.4 (1.0-2.8); Alkaline Phosphatase 58 U/L (38-126); Aspartate Aminotransferase 23 IU/L (14-36); Bilirubin Total 0.5 mg/dL (0.2-1.3); Blood Urea Nitrogen 20 mg/dL (7-17); Calcium 9.2 mg/dL (8.4-10.2); Carbon Dioxide 26 mmol/L (22-32); Chloride 103 mmol/L (98-107); Estimated Glomerular Filt Rate > 60 mL/min (>60); Glucose 116 mg/dL (80-110); HEMOLYSIS < 15 (0-50); Potassium 4.7 mmol/L (3.4-5.1); Sodium 138 mmol/L (137-145); Total Protein 7.2 g/dL (6.3-8.2)
[2023-01-09 08:36] LABS: Labcorp Hemoglobin (Hb) A1c 6.9 % (4.8-5.6)
== END ==
PROVIDERS: PCP Nurse Practitioner; Referring Provider Nurse Practitioner; Visit Provider Nurse Practitioner
DX: Z79.899 Other long term (current) drug therapy (principal)
CPT/HCPCS: 36415; 80053; 83036

== ENCOUNTER 2023-03-19 11:00 | Outpatient (RCR) | payer MEDICARE, MEDICAID, SELFPAY ==
--- NOTE | 2023-02-08 15:04 | PT.OIE ---
Current Diagnoses Pain in right arm (02/08/23) Past Medical History (Last Reviewed 01/15/23 @ 11:35 by ESTELA Ramos) Anxiety Cataract Cervical cancer (~1989) Claustrophobia Gastritis GERD (gastroesophageal reflux disease) Glaucoma Heart murmur Hemorrhoid Hepatitis C antibody positive in blood History of urinary incontinence Hyperlipidemia Hypertension Incontinence in female Macular degeneration Non-insulin dependent diabetes mellitus without complication Osteoporosis Seasonal allergies Sleep apnea Wears dentures Past Surgical History (Last Reviewed 01/15/23 @ 11:35 by ESTELA Ramos) Anesthesia H/O sinus surgery (~1993) H/O: hysterectomy (~1977) History of colonoscopy (~2018) History of tubal ligation (~1977) S/P laparoscopic procedure (~1989) Visit Care Team Role Provider Type ESTELA Ramos Attending Provider Advanced Software Sales Executive Family Provider Primary Care Provider Referring Provider Specialty: Family Practice Address: [address] [place] [address] Email: [email or web address] Physical Therapy Initial Evaluation PT-OP-A Visit Information Start: 02/08/23 13:26 Freq: Status: Active Protocol: Document 02/08/23 13:28 ES (Rec: 02/08/23 15:03 ES [id number]) Out-Patient Physical Therapy Visit Information Visit Information Visit Type Initial Evaluation Visit Start Time 13:45 Visit Stop Time 14:37 Total Visit Minutes 52 Visit Number 1 Number of PRECISION MACHINING INSTRUCTOR Visits 0 Evaluation Information Evaluation Date 02/08/23 Precautions Precautions Ice/cold causes skin rash - no cold packs PT-OP-B Current Condition Start: 02/08/23 13:26 Freq: Status: Active Protocol: Document 02/08/23 13:28 ES (Rec: 02/08/23 15:03 ES [id number]) Current Condition History of Current Condition Onset Date 3 months ago Current Complaints R shoulder pain History of Current Condition Patient woke up about 3 months ago with pain in her R shoulder. The pain has been off and on since then. No previous hx of shoulder pain. Some hx of neck pain, had some shots that took care of it. Also has a hx of back pain from an accident a long time ago. It bothers her with weather changes and uses pain patches to help. Has had PT before for her neck and back about 10 years ago with good results. Patient is R-handed. Prior Treatments and Tests None. Treatment Goals Patient/Caregiver Goals To have less shoulder pain, to be able to wash her hair and carry things with her arm. Current Functional Impairments (Reported) Functional Limitations- ADL's Bathing, dressing, sleeping PT-OP-C Subjective Start: 02/08/23 13:26 Freq: Status: Active Protocol: Document 02/08/23 13:28 ES (Rec: 02/08/23 15:03 ES [id number]) Patient Questionnaires Quick Dash- Upper Extremity Quick Dash UE Score 52.3 Quick Dash UE Impairment 40 to 59% Impaired (Score 40- 59) OP-PT Pain Assessment Location R shoulder Pain Location Details Across the top of the shoulder at GHJ Intensity 7 Scale Used Numeric (0 - 10) Description Pinching,With Movement Description- Other 5/10 at rest Frequency Constant Radiating Location Lateral upper arm Variations/Patterns Worsening over time Pain Aggravating Factors Position,Changing Position,ADL 's,Activity,Exercise,Lifting Other Pain Aggravating Factors Reaching behind head and behind back, sleeping on R side Pain Alleviating Factors Heat,Medication,Position Other Pain Alleviating Factors Sleeping on L side with pillows under arm Patient Stated Pain Goal 3 Home Pain Medication Use Pain Medications Used Yes: Also using salonpas patches Home Pain Medication Frequency Tylenol at night PT-OP-J Posture/Palpation/Skin Start: 02/08/23 13:26 Freq: Status: Active Protocol: Document 02/08/23 13:28 ES (Rec: 02/08/23 15:03 ES [id number]) Posture Evaluation Position Standing Evaluation View Posterior Head/C-Spine Posture Side Bent Right T-Spine Posture Neutral Shoulder Posture (R) Rounded,(R) Forward Scapula Posture (R) Depressed,(R) Tipped Comments Posture Comments R humerus in abduction and IR in all positions Palpation Assessment Location One Palpation Location R shoulder Palpation Findings Tenderness Palpation Details Tenderness at AC joint, anterior and lateral humeral head distal to acromion, nonspecific. PT-OP-K Range of Motion Start: 02/08/23 13:26 Freq: Status: Active Protocol: Document 02/08/23 13:28 ES (Rec: 02/08/23 15:03 ES [id number]) Shoulder Goniometric Range of Motion Shoulder Right Passive Shoulder ROM WFL No Testing Position Supine Flexion 110 Abduction 115 External Rotation at 45 degrees 70 Abduction Internal Rotation 70 Comments Pain at end range flexion, abduction, ER. Supine pec minor length = decreased R Left Active Shoulder ROM WFL Yes Testing Position Standing Flexion 145 Abduction 170 Horizontal Adduction 40 External Rotation at 0 degrees Abduction 55 Internal Rotation Behind Back (text) L1 Comments ER behind head to T4 Right Active Shoulder ROM WFL No Testing Position Standing Flexion 95 Abduction 75 Horizontal Adduction 35 External Rotation at 0 degrees Abduction 50 Internal Rotation Behind Back (text) L4 Comments ER behind head to T1 Painful with all movements Decreased pain with manual correction of R scapula PT-OP-M Strength Start: 02/08/23 13:26 Freq: Status: Active Protocol: Document 02/08/23 13:28 ES (Rec: 02/08/23 15:03 ES [id number]) Shoulder Strength Shoulder Manual Muscle Testing Left Flexion 4 Good Extension 4 Good Abduction (C5) 4 Good Adduction 4 Good External Rotation 4 Good Internal Rotation 4 Good Horizontal Abduction 4 Good Horizontal Adduction 4 Good Right External Rotation 4- Good- Internal Rotation 4 Good Comments Pain with resisted abduction, ER. No pain with resisted flexion, IR, extension, adduction in neutral position. PT-OP-Q Treatments Start: 02/08/23 13:26 Freq: Status: Active Protocol: Document 02/08/23 13:28 ES (Rec: 02/08/23 15:03 ES [id number]) Therapeutic Exercises Standing Exercises 1 Standing Exercise Name HEP Comments Patient instruction and demonstration, see handout Neuro Re-Education Treatment Other Activities 1 Details Kinesiotape posture correction Comments I strip anchored to origin of lower trap with 40% stretch to anterior chest to promote posterior tip of scapula. Patient instruction for wear/ removal. PT-OP-T Assessment and Plan Start: 02/08/23 13:26 Freq: Status: Active Protocol: Document 02/08/23 13:28 ES (Rec: 02/08/23 15:03 ES [id number]) Physical Therapy Assessment Rehab Potential Rehabilitation Potential Good Evaluation Complexity Number of Personal Factors/Comorbidities 0 Number of Body Systems Impaired 1-2 Clinical Presentation at Evaluation Stable Impairments Impairments Functional Activities,Pain, Posture,ROM,Soft Tissue Mobility,Strength Goals Three Impairment HEP Supervisor Intermediates Goal (LTG) Patient will be independent with HEP for R shoulder and scapular mobility and strength . LTG Duration 8 weeks Two Impairment ADL's Supervisor Intermediates Goal (LTG) Patient will be able to wash her hair and back using RUE with 3/10 pain or less. LTG Duration 6 weeks One Impairment ROM Short Term Goal (STG) Patient will demonstrate R=L AROM shoulder all motions with 3/10 pain or less. STG Duration 4 weeks Assessment Summary Assessment Patient is a 72 year old female referred to PT for R shoulder pain. She demonstrates impaired scapular position/posture, decreased R shoulder ROM, and decreased R shoulder strength contributing to difficulty sleeping and using dominant R UE for ADL's. She demonstrated increased ROM and decreased pain with overhead motion following HEP performance this visit, and reported decreased pain at rest with taping applied. She will benefit from further skilled therapy to address the above impairments in order to reduce pain with her normal ADL's. Physical Therapy Plan Frequency and Duration Frequency of Treatment 1x/Week Duration of treatment (weeks) 8 Plan of Care Start Date 02/08/23 Plan of Care End Date 04/05/23 Therapeutic Interventions Therapeutic Interventions Home Exercise Program,Joint Mobilizations,Manual Therapy, Neuromuscular Re-education, Patient/Caregiver Education, Self-Care/Home Management,Soft Tissue Mobilization,Taping, Therapeutic Activities, Therapeutic Exercises Modalities Electric Stimulation,Hot Packs ,Ultrasound Next Visit Focus/Plan Next Note Type Treatment Note Next Visit Plan Assess response to taping. Review/progress HEP. STM pec minor, scap-humeral mm as indicated.
--- NOTE | 2023-02-08 15:06 | PT.OPPOC ---
Physical, Occupational & Speech Therapy At [facility] Current Diagnoses Pain in right arm (02/08/23) Visit Care Team Role Provider Type ESTELA Ramos Attending Provider Advanced Statistical Assistant Family Provider Primary Care Provider Referring Provider Specialty: Family Practice Address: [address] [place] [address], [address] Email: [email or web address] Plan Of Care PT-OP-T Assessment and Plan Start: 02/08/23 13:26 Freq: Status: Active Protocol: Document 02/08/23 13:28 ES (Rec: 02/08/23 15:03 ES [id number]) Physical Therapy Assessment Rehab Potential Rehabilitation Potential Good Evaluation Complexity Number of Personal Factors/Comorbidities 0 Number of Body Systems Impaired 1-2 Clinical Presentation at Evaluation Stable Impairments Impairments Functional Activities,Pain, Posture,ROM,Soft Tissue Mobility,Strength Goals Three Impairment HEP Reinstatement Clerk Goal (LTG) Patient will be independent with HEP for R shoulder and scapular mobility and strength . LTG Duration 8 weeks Two Impairment ADL's Prison Goal (LTG) Patient will be able to wash her hair and back using RUE with 3/10 pain or less. LTG Duration 6 weeks One Impairment ROM Short Term Goal (STG) Patient will demonstrate R=L AROM shoulder all motions with 3/10 pain or less. STG Duration 4 weeks Assessment Summary Assessment Patient is a 72 year old female referred to PT for R shoulder pain. She demonstrates impaired scapular position/posture, decreased R shoulder ROM, and decreased R shoulder strength contributing to difficulty sleeping and using dominant R UE for ADL's. She demonstrated increased ROM and decreased pain with overhead motion following HEP performance this visit, and reported decreased pain at rest with taping applied. She will benefit from further skilled therapy to address the above impairments in order to reduce pain with her normal ADL's. Physical Therapy Plan Frequency and Duration Frequency of Treatment 1x/Week Duration of treatment (weeks) 8 Plan of Care Start Date 02/08/23 Plan of Care End Date 04/05/23 Therapeutic Interventions Therapeutic Interventions Home Exercise Program,Joint Mobilizations,Manual Therapy, Neuromuscular Re-education, Patient/Caregiver Education, Self-Care/Home Management,Soft Tissue Mobilization,Taping, Therapeutic Activities, Therapeutic Exercises Modalities Electric Stimulation,Hot Packs ,Ultrasound Next Visit Focus/Plan Next Note Type Treatment Note Next Visit Plan Assess response to taping. Review/progress HEP. STM pec minor, scap-humeral mm as indicated. Plan of Care Dates Plan of Care Start Date 02/08/23 Plan of Care End Date 04/05/23 Electronically Signed by: Lawanda Koroma, PT 02/08/23 7519 If you are in agreement with this Plan of Care, please return a signed and dated copy. I have reviewed this Plan of Care and certify that the skilled therapy services above are required to meet the patient?s needs. Physician Signature Date Printed Name and Credentials Clinical Instructor Signature Printed Name and Credentials
--- NOTE | 2023-02-13 11:48 | PT.OTN ---
Current Diagnoses Pain in right arm (02/13/23) Physical Therapy Treatment Note PT-OP-A Visit Information Start: 02/08/23 13:26 Freq: Status: Active Protocol: Document 02/13/23 10:59 ES (Rec: 02/13/23 11:48 ES [id number]) Out-Patient Physical Therapy Visit Information Visit Information Visit Type Treatment Note Visit Start Time 10:59 Visit Stop Time 11:39 Total Visit Minutes 40 Visit Number 2 Number of TAR DISTILLATION SUPERVISOR Visits 0 Evaluation Information Evaluation Date 02/08/23 Precautions Precautions Ice/cold causes skin rash - no cold packs Sensitive to adhesives - no tape PT-OP-C Subjective Start: 02/08/23 13:26 Freq: Status: Active Protocol: Document 02/13/23 10:59 ES (Rec: 02/13/23 11:48 ES [id number]) OP-PT Subjective Patient Comments Patient Comments Patient reported that she got a rash from the tape so she took it off after two days. Stated her shoulder did seem to feel better when she had the tape on though. She stated the exercises were okay and didn't hurt her shoulders. Yesterday she reached over to the side to grab her phone and it flared up her shoulder. She also has noticed some swelling on the R side of her neck above her collar bone. Tried icing it at home and it went down but then it came back yesterday. PT-OP-K Range of Motion Start: 02/08/23 13:26 Freq: Status: Active Protocol: Document 02/13/23 10:59 ES (Rec: 02/13/23 11:48 ES [id number]) Shoulder Goniometric Range of Motion Shoulder Right Active Testing Position Sitting Flexion 130 Abduction 155 Horizontal Adduction 35 Comments Pain with horizontal add, tightness with flexion/ abduction PT-OP-Q Treatments Start: 02/08/23 13:26 Freq: Status: Active Protocol: Document 02/13/23 10:59 ES (Rec: 02/13/23 11:48 ES [id number]) Therapeutic Exercises Sitting Exercises 1 Sitting Exercise Name Posterior capsule stretch Side right Reps/Minutes 3x30s Comments with blue band for posterior humeral glide, instructed for home Standing Exercises 2 Standing Exercise Name Shoulder extension isometrics Side right Reps/Minutes 5x10s Comments Instructed for home 1 Standing Exercise Name HEP Comments Reviewed and patient demonstrated prior ex's; handout provided for new ex's Manual Therapy Treatment Joint Mobilizations 1 Joint GHJ Direction AP Grade III Body Position Supine Reps/Duration 6x15 Comments Performed in 90 degrees abduction to improve horizontal adduction. PT-OP-T Assessment and Plan Start: 02/08/23 13:26 Freq: Status: Active Protocol: Document 02/13/23 10:59 ES (Rec: 02/13/23 11:48 ES [id number]) Physical Therapy Assessment Progress Towards Goals Progress Towards Goals Progressing Toward Goals Assessment Summary Assessment Patient demonstrated increased R shoulder AROM this visit compared to previous. Patient continues to be limited primarily with cross body adduction and IR behind back, along with reaching out laterally/posteriorly. She demonstrated decreased posterior capsule length and decreased GHJ posterior glide. She had increased ROM and decreased pain with shoulder ROM after treatment today. She was educated on posture to improve scapular position during reaching which also reduced her pain. She will benefit from further PT to improve GHJ and scapular mechanics to reduce pain with functional use of R shoulder. Recommend she notify her PCP if swelling in neck does not improve in 1-2 days or if it worsens. Physical Therapy Plan Next Visit Focus/Plan Next Note Type Treatment Note Next Visit Plan Continue manual therapy as indicated for posterior capsule length. Progress RC and scapular strengthening, shoulder AROM.
--- NOTE | 2023-02-19 14:28 | PT.OTN ---
Current Diagnoses Pain in right arm (02/19/23) Physical Therapy Treatment Note PT-OP-A Visit Information Start: 02/08/23 13:26 Freq: Status: Active Protocol: Document 02/19/23 13:53 ES (Rec: 02/19/23 14:28 ES [id number]) Out-Patient Physical Therapy Visit Information Visit Information Visit Type Treatment Note Visit Start Time 13:48 Visit Stop Time 14:20 Total Visit Minutes 32 Visit Number 3 Number of POST OFFICE MARKUP CLERK Visits 0 PT-OP-C Subjective Start: 02/08/23 13:26 Freq: Status: Active Protocol: Document 02/19/23 13:53 ES (Rec: 02/19/23 14:28 ES [id number]) OP-PT Subjective Patient Comments Patient Comments Patient reported that she was sore for a couple days after last visit but then has had almost no pain since then. Has been able to move her arm and sleep on her side without pain. PT-OP-J Posture/Palpation/Skin Start: 02/08/23 13:26 Freq: Status: Active Protocol: Document 02/08/23 13:28 ES (Rec: 02/08/23 15:03 ES [id number]) Posture Evaluation Position Standing Evaluation View Posterior Head/C-Spine Posture Side Bent Right T-Spine Posture Neutral Shoulder Posture (R) Rounded,(R) Forward Scapula Posture (R) Depressed,(R) Tipped Comments Posture Comments R humerus in abduction and IR in all positions Palpation Assessment Location One Palpation Location R shoulder Palpation Findings Tenderness Palpation Details Tenderness at AC joint, anterior and lateral humeral head distal to acromion, nonspecific. PT-OP-K Range of Motion Start: 02/08/23 13:26 Freq: Status: Active Protocol: Document 02/19/23 13:53 ES (Rec: 02/19/23 14:28 ES [id number]) Shoulder Goniometric Range of Motion Shoulder Left Active Shoulder ROM WFL Yes Testing Position Sitting Flexion 145 Abduction 170 Horizontal Adduction 45 Internal Rotation Behind Back (text) L2 Comments ER behind head to T2 Right Active Shoulder ROM WFL Yes Testing Position Sitting Flexion 135 Abduction 155 Horizontal Adduction 45 Internal Rotation Behind Back (text) L3 Comments ER behind head to T2. PT-OP-Q Treatments Start: 02/08/23 13:26 Freq: Status: Active Protocol: Document 02/19/23 13:53 ES (Rec: 02/19/23 14:28 ES [id number]) Therapeutic Exercises Supine Exercises 1 Supine Exercise Name AAROM shoulder flexion Side right Equipment Used Cane Reps/Minutes [id number] Comments Added to HEP Manual Therapy Treatment Soft Tissue Mobilization 1 Body Location R shoulder Mobilization Type Myofascial Release,Sustained Pressure,Trigger Point Release Intensity/Depth Light to moderate Body Position L sidelying, supine Comments Posterior capsule, scap-hum mm 's, pec major/minor Joint Mobilizations 1 Joint GHJ Direction AP Grade III Body Position Supine Reps/Duration 3x30 Comments Performed in 90 degrees abduction to improve horizontal adduction. Self-Care/Home Management Treatment Education Patient Education Home Exercise Program Other Education Review and patient demonstration of new ex's from last visit. PT-OP-T Assessment and Plan Start: 02/08/23 13:26 Freq: Status: Active Protocol: Document 02/19/23 13:53 ES (Rec: 02/19/23 14:28 ES [id number]) Physical Therapy Assessment Goals Three Impairment HEP Service Associate Goal (LTG) Patient will be independent with HEP for R shoulder and scapular mobility and strength . LTG Duration 8 weeks Two Impairment ADL's Fdc Goal (LTG) Patient will be able to wash her hair and back using RUE with 3/10 pain or less. LTG Duration 6 weeks One Impairment ROM Short Term Goal (STG) Patient will demonstrate R=L AROM shoulder all motions with 3/10 pain or less. STG Duration 4 weeks Progress Towards Goals Progress Towards Goals Progressing Toward Goals Assessment Summary Assessment Patient continues to increase R shoulder ROM with decreased reports of pain since last visit. She had decreased tenderness in R shoulder musculature and was able to tolerate ROM ex progression. Physical Therapy Plan Next Visit Focus/Plan Next Note Type Treatment Note Next Visit Plan Treatment vs d/c; will follow up after patient returns from trip in 3 weeks and d/c if all goals met.
--- NOTE | 2023-03-19 11:24 | PT.OTN ---
Current Diagnoses Pain in right arm (03/19/23) Physical Therapy Treatment Note PT-OP-A Visit Information Start: 02/08/23 13:26 Freq: Status: Active Protocol: Document 03/19/23 10:58 ES (Rec: 03/19/23 11:24 ES [id number]) Out-Patient Physical Therapy Visit Information Visit Information Visit Type Discharge Summary Visit Start Time 11:01 Visit Stop Time 11:15 Total Visit Minutes 14 Visit Number 4 Number of SECURITY GUARD DISPATCHER Visits 0 Evaluation Information Evaluation Date 02/08/23 PT-OP-B Current Condition Start: 02/08/23 13:26 Freq: Status: Active Protocol: Document 02/08/23 13:28 ES (Rec: 02/08/23 15:03 ES [id number]) Current Condition History of Current Condition Onset Date 3 months ago Current Complaints R shoulder pain History of Current Condition Patient woke up about 3 months ago with pain in her R shoulder. The pain has been off and on since then. No previous hx of shoulder pain. Some hx of neck pain, had some shots that took care of it. Also has a hx of back pain from an accident a long time ago. It bothers her with weather changes and uses pain patches to help. Has had PT before for her neck and back about 10 years ago with good results. Patient is R-handed. Prior Treatments and Tests None. Treatment Goals Patient/Caregiver Goals To have less shoulder pain, to be able to wash her hair and carry things with her arm. Current Functional Impairments (Reported) Functional Limitations- ADL's Bathing, dressing, sleeping PT-OP-C Subjective Start: 02/08/23 13:26 Freq: Status: Active Protocol: Document 03/19/23 10:58 ES (Rec: 03/19/23 11:24 ES [id number]) OP-PT Subjective Patient Comments Patient Comments Patient returned from a trip to [place]. She reported that her shoulder felt good, is not really having any pain anymore except if she moves too quickly especially across her body. Is able to sleep on her R side without waking up and does not have pain afterward. Has been doing her exercises and plans to continue them. Is agreeable to d/c today. Patient Questionnaires Quick Dash- Upper Extremity Quick Dash UE Score 9 Quick Dash UE Impairment 1 to 19% Impaired (Score 1-19) OP-PT Pain Assessment Location R shoulder Intensity 0 Scale Used Numeric (0 - 10) Other Pain Aggravating Factors Occasionally pain with fast movement across the body PT-OP-K Range of Motion Start: 02/08/23 13:26 Freq: Status: Active Protocol: Document 03/19/23 10:58 ES (Rec: 03/19/23 11:24 ES [id number]) Shoulder Goniometric Range of Motion Shoulder Left Active Flexion 145 Abduction 170 Horizontal Adduction 45 Internal Rotation Behind Back (text) L2 Comments ER behind head to T2 Right Active Shoulder ROM WFL Yes Testing Position Sitting Flexion 145 Abduction 160 Horizontal Adduction 45 Internal Rotation Behind Back (text) L2 Comments ER behind head to T2. PT-OP-M Strength Start: 02/08/23 13:26 Freq: Status: Active Protocol: Document 03/19/23 10:58 ES (Rec: 03/19/23 11:24 ES [id number]) Shoulder Strength Shoulder Manual Muscle Testing Left Flexion 5 Normal Abduction (C5) 5 Normal External Rotation 5 Normal Internal Rotation 5 Normal Right Flexion 5 Normal Abduction (C5) 5 Normal External Rotation 5 Normal Internal Rotation 5 Normal PT-OP-Q Treatments Start: 02/08/23 13:26 Freq: Status: Active Protocol: Document 03/19/23 10:58 ES (Rec: 03/19/23 11:24 ES [id number]) Therapeutic Exercises Other Exercises HEP Other Exercise Name Review of current HEP; instructed she can reduce to 1 -2x/week PT-OP-T Assessment and Plan Start: 02/08/23 13:26 Freq: Status: Active Protocol: Document 03/19/23 10:58 ES (Rec: 03/19/23 11:24 ES [id number]) Physical Therapy Assessment Impairments Impairments Functional Activities,Pain, Posture,ROM,Soft Tissue Mobility,Strength Goals Three Impairment HEP [facility] Goal (LTG) Patient will be independent with HEP for R shoulder and scapular mobility and strength . LTG Duration 8 weeks - met Two Impairment ADL's [facility] Goal (LTG) Patient will be able to wash her hair and back using RUE with 3/10 pain or less. LTG Duration 6 weeks - met One Impairment ROM Short Term Goal (STG) Patient will demonstrate R=L AROM shoulder all motions with 3/10 pain or less. STG Duration 4 weeks - 95% met Progress Towards Goals Progress Towards Goals Goals Met Assessment Summary Assessment Patient returns to PT with continued improvement, now with very minimal pain. She demonstrates full functional ROM equal to L with exception of 10 degrees of abduction difference. She demonstrates full strength R shoulder without production of pain. She had significant improvement on QuickDASH indicating minimal impairment in function. She has sufficiently met therapy goals and is appropriate to d/c at this time.
== END 2023-03-21 12:45 | disposition home or self-care (01) ==
LOC: PHYS 11:00
PROVIDERS: Family Provider Nurse Practitioner; PCP Nurse Practitioner; Referring Provider Nurse Practitioner; Visit Provider Nurse Practitioner
DX: M79.601 Pain in right arm (principal)
CPT/HCPCS: 97110; 97140; 97161

== ENCOUNTER 2023-03-31 19:45 | Observation (INO) | payer MEDICARE, MEDICAID, SELFPAY ==
[2023-03-31 19:50] VITALS: BP 151/81; PULSE 105; RESP 18; TEMP 36.8; O2SAT 95; BMI 29.0
--- NOTE | 2023-03-31 20:09 | ED_ITS ---
HPI - Abdominal Pain General Chief Complaint: Abdominal Pain Stated Complaint: rt abd pain Time Seen by Provider: 03/31/23 19:52 Source: patient Mode of arrival: Ambulatory History of Present Illness HPI narrative: 72-year-old female former smoker is a diabetic with a history of hypertension presents with her daughter and a chief complaint of worsening right upper quadrant pain with radiation to her back. She states it is worse when she moves and when she eats. She is been nauseated but denies vomiting. She denies fever or chills. She denies any prior surgeries of her abdomen. She is not dizzy nor weak or lightheaded. She denies any change in her bowel habits and has no urinary complaints. Related Data Home Medications Medication Instructions Recorded Confirmed omega-3 fatty acids 1,000 mg 1,000 mg PO BID 11/29/20 01/15/23 capsule (Fish Oil Concentrate) Previous Rx's Medication Instructions Recorded lancets (Lancets,Ultra Thin) #100 ea 01/14/20 bimatoprost 0.01 % eye drops 1 drop EYE-BOTH DAILY #5 mL 03/15/20 (Kath) lisinopril 20 mg tablet 20 mg PO DAILY #90 tabs 04/06/22 metformin 500 mg tablet,extended 2,000 mg PO QPM #360 tabs 04/06/22 release 24 hr rosuvastatin 10 mg tablet 5 mg PO DAILY #45 tabs 04/06/22 blood sugar diagnostic (Blood #200 ea 04/17/22 Glucose Test strips) glipizide 5 mg tablet 5 mg PO DAILY #90 tabs 04/17/22 pioglitazone 15 mg tablet 15 mg PO DAILY #90 tabs 07/17/22 Allergies Allergy/AdvReac Type Severity Reaction Status Date / Time No Known Drug Allergies Allergy Verified 03/31/23 19:50 Review of Systems Review of Systems Narrative: GENERAL: Denies chills, fatigue, malaise, fever, sweats. HEENT: Denies sinus pain, ear pain, sore throat, difficulty swallowing, dizziness. RESPIRATORY: Denies dyspnea, cough, wheezing, hemoptysis, sputum. CARDIOVASCULAR: Denies chest pain, palpitations, orthopnea, edema, GASTROINTESTINAL: See HPI : Denies dysuria, frequency, incontinence, hematuria, urinary retention. MUSCULOSKELETAL: denies weakness, joint pain, or bony pain SKIN: Denies rash, skin lesions, or other NEUROLOGIC: Denies weakness, headache, numbness, change in speech, confusion, seizures, incoordination. PSYCHIATRIC: No concerning psychosocial issues. 12 point review of systems is negative except for those stated above Patient History Medical History Anxiety Cataract Cervical cancer (~1989) Claustrophobia Gastritis GERD (gastroesophageal reflux disease) Glaucoma Heart murmur Hemorrhoid Hepatitis C antibody positive in blood History of urinary incontinence Hyperlipidemia Hypertension Incontinence in female Macular degeneration Non-insulin dependent diabetes mellitus without complication Osteoporosis Seasonal allergies Sleep apnea Wears dentures Surgical History Anesthesia H/O sinus surgery (~1993) H/O: hysterectomy (~1977) History of colonoscopy (~2018) History of tubal ligation (~1977) S/P laparoscopic procedure (~1989) Family History Father History of heart disease Mother Parkinson's disease Dementia Brother Cancer Sister Cancer Diabetes mellitus Grandmother Brain aneurysm Grandfather History of heart disease Grandmother Stroke Family/Other Cancer Social History household members: children Smoking Status: Former smoker alcohol intake: never Smoking Status: Former smoker Substance Use Type: does not use Exam Narrative Exam Narrative: GENERAL: [72] year old patient appears stated age. Well-developed patient, in mild distress. HEAD: Atraumatic. Normocephalic. EYES: Pupils equal round and reactive. Extraocular motions intact. No scleral icterus. No injection or drainage. ENT: Nose without bleeding, purulent drainage. Throat without erythema, tonsillar hypertrophy or exudate. Airway patent. NECK: Trachea midline. Non tender CARDIOVASCULAR: Regular rate and rhythm without murmurs, gallops, or rubs. RESPIRATORY: Clear to auscultation. Breath sounds equal bilaterally. No wheezes, rales, or rhonchi. GASTROINTESTINAL: Abdomen soft, tenderness in the right upper quadrant nondistended. EXTREMITIES: No edema or joint tenderness. BACK: Nontender without deformity or crepitance. No flank tenderness. NEURO: AOx3. SKIN: No rash or erythema of visible areas Initial Vital Signs Initial Vital Signs: Vital Signs Temperature 98.2 F 03/31/23 19:50 Pulse Rate 105 H 03/31/23 19:50 Respiratory Rate 18 03/31/23 19:50 Blood Pressure 151/81 H 03/31/23 19:50 Pulse Oximetry 95 03/31/23 19:50 Oxygen Delivery Method Room Air 03/31/23 19:50 Course Orders Ordered: ED Orders 03/31/23 20:00 Urine Culture Stat Urine Microscopic Stat 03/31/23 20:03 EKG-12 Lead Stat 03/31/23 20:10 US abdomen limited Stat 03/31/23 20:15 Complete Blood Count AUTO DIFF Stat Comprehensive Metabolic Panel Stat Lipase Stat Acetaminophen (Acetaminophen 325 Mg Tablet) 650 mg PO Q6H PRN PRN Reason: Fever/Mild Pain (1-3) Dextrose (Dextrose 50 % In Water 25 Gm/50 Ml Syringe) 25 gm IV PRN PRN; Protocol PRN Reason: Hypoglycemia Hydromorphone HCl (Hydromorphone 0.5 Mg Inj) 0.5 mg IV Q2H PRN PRN Reason: Pain, Severe (7-10) Sodium Chloride (Normal Saline 0.9%) 1,000 mls @ 100 mls/hr IV CONT DENILSON Last Admin: 03/31/23 22:46 Dose: 100 mls/hr Documented By: BARBARA Ibuprofen (Ibuprofen 600 Mg Tablet) 600 mg PO Q6H PRN PRN Reason: Fever/Mild Pain (1-3) Insulin Human Lispro (Insulin Lispro 100 Unit/Ml 3ml Vial) 0 unit SUBCUT Q6H DENILSON; Protocol Last Admin: 03/31/23 22:48 Dose: Not Given Documented By: BARBARA Lisinopril (Lisinopril 20 Mg Tablet) 20 mg PO DAILY [facility] Naloxone HCl (Naloxone 0.4 Mg/Ml Vial) 0.2 mg IV Q2MIN PRN PRN Reason: Opiate Reversal Non-Formulary Medication (Bimatoprost [Lumigan]) 1 drop EYE-BOTH DAILY [facility] Ondansetron HCl (Ondansetron 4 Mg Odt) 4 mg PO NOW PRN PRN Reason: Nausea And Vomiting Ondansetron HCl (Ondansetron 4 Mg/2 Ml Inj) 4 mg IV NOW PRN PRN Reason: Nausea And Vomiting Last Admin: 03/31/23 20:25 Dose: 4 mg Documented By: Oxycodone HCl (Oxycodone Ir 5 Mg Tablet) 5 mg PO Q3H PRN PRN Reason: Pain, Moderate (4-6) Last Admin: 03/31/23 22:44 Dose: 5 mg Documented By: AGW Discontinued Medications Hydromorphone HCl (Hydromorphone 0.5 Mg Inj) 0.5 mg IV NOW ONE Stop: 03/31/23 20:11 Last Admin: 03/31/23 20:26 Dose: 0.5 mg Documented By: Sodium Chloride (Normal Saline 0.9%) 1,000 mls @ 1,000 mls/hr IV BOLUS ONE Stop: 03/31/23 21:09 Last Infusion: 03/31/23 21:25 Dose: 0 mls/hr Documented By: Admin: 03/31/23 20:25 Dose: 1,000 mls/hr Documented By: Consultations Consultation #1: Discussed with on-call surgeon, Dr. Tsai, requests patient be admitted to his service and will perform choley tomorrow Vital Signs Vital signs: Vital Signs - 8 hr 03/31/23 19:50 Temperature 98.2 F Pulse Rate 105 H Respiratory Rate 18 Blood Pressure 151/81 H Pulse Oximetry 95 Oxygen Delivery Method Room Air MDM - Abdominal Pain Lab Data 03/31/23 20:15 03/31/23 20:15 Labs: Lab Results 03/31/23 03/31/23 03/31/23 Range/Units 20:00 20:15 20:15 WBC 7.3 (4.5-11.0) X10^3/uL RBC 4.00 (4.0-5.2) X10^6/uL Hgb 12.5 (12.0-16.0) g/dL Hct 36.2 (36-46) % MCV 90.5 (80-100) fL MCH 31.2 (26-34) PG MCHC 34.5 (30-36) % RDW 12.6 (11.6-14.8) % Plt Count 205 (150-400) X10^3/uL Neut % (Auto) 67.8 (50-75) % Lymph % (Auto) 23.4 L (25-40) % [place]ick % (Auto) 7.3 (3-14) % Eos % (Auto) 0.9 L (2-4) % Baso % (Auto) 0.6 (0-2) % Neut # (Auto) 5000 (1396-8090) /uL Lymph # (Auto) 1700 (9809-9431) /uL [place]ick # (Auto) 500 (0-900) /uL Eos # (Auto) 100 (0-450) /uL Baso # (Auto) 0 (0-100) /uL Sodium 135 L (137-145) mmol/L Potassium 4.1 (3.4-5.1) mmol/L Chloride 101 (98-107) mmol/L Carbon Dioxide 24 (22-32) mmol/L BUN 21 H (7-17) mg/dL Creatinine 0.77 (0.52-1.04) mg/dL Estimated GFR > 60 (>60) mL/min BUN/Creatinine Ratio 27.3 H (6-22) Glucose 150 H (80-110) mg/dL Calcium 9.1 (8.4-10.2) mg/dL Total Bilirubin 0.5 (0.2-1.3) mg/dL AST 17 (14-36) IU/L ALT 19 (<35) IU/L Alkaline Phosphatase 63 (38-126) U/L Total Protein 8.1 (6.3-8.2) g/dL Albumin 4.4 (3.5-5.0) g/dL Globulin 3.7 (1.7-4.1) g/dL Albumin/Globulin Ratio 1.2 (1.0-2.8) Lipase 128 (23-300) U/L Urine RBC 10-30/hpf H (0-5/HPF) Urine WBC 30-100/hpf H (0-5/HPF) Ur Squamous Epith Cells 1-5 /hpf (0-5/HPF) Urine Bacteria Moderate (10-30) H (None) Ur Culture Indicated? Specimen cultured Micro UA Comment Point of care testing: Urine Dip Bedside Urine Glucose Negative Bedside Urine Bilirubin - Negative Bedside Urine Ketone - Negative Urine Specific [place] 1.02 Bedside Urine Occult Blood +++ Bedside Urine pH 6.0 Bedside Urine Protein + 30 Bedside Urine Urobilinogen - Negative Bedside Urine Nitrite + Positive Bedside Urine Leukocytes + 70 Esterase MDM Narrative Medical decision making narrative: 72-year-old female with right upper quadrant pain worsening over the past day or 2. Patient is nauseated but denies vomiting. Ultrasound demonstrates gallstones with a stone stuck in her neck. Though there are no signs of infection such as elevated white blood cell count or an obstructive process the patient is at high-risk for deterioration. She requires hospitalization and will likely get cholecystectomy tomorrow. Patient understands and agrees with the diagnosis and plan Discharge Plan Departure Patient Disposition: Admitted as Observation Clinical Impression: Gallbladder pain Admit Date/Time: 03/31/23 21:58 Admit Provider: Ham Tsai
--- NOTE | 2023-03-31 20:10 | DI.US.S_ITS ---
PROCEDURE: US ABDOMEN LIMITED INDICATIONS: RUQ pain, radiation to back TECHNIQUE: Real-time focused scanning was performed of the abdomen, with image documentation. COMPARISON: None. FINDINGS: The liver appears normal except for increased echotexture consistent with fatty infiltration. Note is made of numerous mobile gallstones within the gallbladder lumen, measuring between 1 and 1.3 cm in maximal dimension. A 9.4 mm gallstone appears fixed, lodged within the gallbladder neck. No definite biliary distension is currently seen. Pancreas is poorly seen due to bowel gas.. IMPRESSION: Numerous gallstones within the gallbladder lumen including 1 lodged within the gallbladder neck that measures up to 9.4 mm in maximal dimension. Currently no acute biliary distension appears present but progression to acute cholecystitis is potentially present given the findings. Dictated by: Padilla Abraham M.D. on 03/31/2023 at 21:13 Approved by: Padilla Abraham M.D. on 03/31/2023 at 21:15
[2023-03-31] MEDS: SODIUM CHLORIDE 0.9% 1,000 ML 1000 ML IV (20:25)
[2023-03-31] MEDS: ONDANSETRON 4 MG/2 ML INJ IV (20:25)
[2023-03-31] MEDS: HYDROMORPHONE 0.5 MG INJ IV (20:26)
[2023-03-31 20:30] LABS: Add Manual Diff / Slide Review NO; Basophils Absolute Auto 0 /uL (0-100); Basophils Percent Auto 0.6 % (0-2); Eosinophils Absolute Auto 100 /uL (0-450); Eosinophils Percent Auto 0.9 % (2-4); Hematocrit 36.2 % (36-46); Hemoglobin 12.5 g/dL (12.0-16.0); Lymphocytes Absolute Auto 1700 /uL (1100-4500); Lymphocytes Percent Auto 23.4 % (25-40); Mean Corpuscular HGB Conc 34.5 % (30-36); Mean Corpuscular Hemoglobin 31.2 PG (26-34); Mean Corpuscular Volume 90.5 fL (80-100); Monocytes Absolute Auto 500 /uL (0-900); Monocytes Percent Auto 7.3 % (3-14); Neutrophils Absolute Auto 5000 /uL (1500-7000); Neutrophils Percent Auto 67.8 % (50-75); Platelet Count 205 X10^3/uL (150-400); Red Cell Distribution Width 12.6 % (11.6-14.8); White Blood Cell Count 7.3 X10^3/uL (4.5-11.0)
[2023-03-31 20:34] LABS: Alanine Aminotransferase 19 IU/L (<35); Albumin 4.4 g/dL (3.5-5.0); Albumin Globulin Ratio 1.2 (1.0-2.8); Alkaline Phosphatase 63 U/L (38-126); Aspartate Aminotransferase 17 IU/L (14-36); BUN Creatinine Ratio 27.3 (6-22); Bilirubin Total 0.5 mg/dL (0.2-1.3); Blood Urea Nitrogen 21 mg/dL (7-17); Calcium 9.1 mg/dL (8.4-10.2); Carbon Dioxide 24 mmol/L (22-32); Chloride 101 mmol/L (98-107); Estimated Glomerular Filt Rate > 60 mL/min (>60); Globulin 3.7 g/dL (1.7-4.1); Glucose 150 mg/dL (80-110); HEMOLYSIS < 15 (0-50); Lipase 128 U/L (23-300); Potassium 4.1 mmol/L (3.4-5.1); Sodium 135 mmol/L (137-145); Total Protein 8.1 g/dL (6.3-8.2)
[2023-03-31 20:40] LABS: Bacteria Urine Moderate (10-30); RBC Urine 10-30/HPF (0-5/HPF); Squamous Epithelial Cell Urine 1-5 /HPF (0-5/HPF); WBC Urine 30-100/HPF (0-5/HPF)
[2023-03-31 20:41] LABS: Culture Indicated Urine Specimen Cultured
[2023-03-31 22:00] VITALS: O2SAT 98
[2023-03-31 22:28] VITALS: BP 142/88; PULSE 62; RESP 16; TEMP 36.5; O2SAT 98
[2023-03-31 22:35] VITALS: BP 155/58; PULSE 95; RESP 19; TEMP 35.9; O2SAT 98
[2023-03-31 22:38] VITALS: BMI 29.0
[2023-03-31] MEDS: OXYCODONE IR 5 MG TABLET PO (22:44)
[2023-03-31] MEDS: SODIUM CHLORIDE 0.9% 1,000 ML 100 ML IV (22:46)
[2023-04-01] VITALS (25 sets, daily range): BP systolic 111–152; BP diastolic 41–78; PULSE 75–107; RESP 11–20; TEMP 36.3–38.4; O2SAT 92–100; BMI 29.0
--- NOTE | 2023-04-01 | PATH_ITS ---
[facility] Accession Number: [id number] No. of containers..01 Tissue . 01 Material submitted: . gallbladder - GALLBLADDER . 01 Diagnosis: Gallbladder, Cholecystectomy: Cholelithiasis with mild chronic cholecystitis. One benign cystic duct lymph node. No evidence of neoplasm. MRV 04/06/2023 1252 Local . 01 Electronically signed: . Lobito Stack MD, PhD, Pathologist NPI- [id number] . 01 Gross description: . The specimen is received in formalin labeled with the patient's name, , and gallbladder, and consists of an intact gallbladder measuring 9.3 x 3.5 x 3.2 cm. The external surface is unremarkable and the cystic duct is inked blue with a sommer pericystic lymph node candidate measuring 0.4 cm in greatest dimension. The lumen is filled with a small amount of mucoid bile and numerous orange-brown faceted calculi measuring up to 1.5 cm in greatest dimension grossly obstructing the cystic duct. The mucosa is sommer to brown and diffusely denuded with no discoloration, polyps, or lesions identified. The rhodes average 0.2 cm thick and respresentative sections to include the cystic duct margin, lymph node candidate, and full thickness sections are submitted in cassette A1. ([id number]) /YUE 04/04/202323 Local . 01 Pathologist provided ICD-10: K80.60, K81.1 . 01 CPT . 373342 Specimen Comment: A courtesy copy of this report has been sent to [phone] Performed at: 01 [facility] [address] [place] [address] [address], [place], [place] [id number] MD Garfield Archibald MD Phone: [phone]
--- NOTE | 2023-04-01 00:03 | PC.NURSE ---
Admit/NOC Shift Note- Patient arrived to room via wheelchair from ER at 2245. Patient alert and oriented and able to make needs known to staff. Admit questions done, physical assessment done, medications reviewed, and skin check completed. Oriented patient to bed and bed controls, room, lights, phone, bathroom, menu, and call jeffrey/TV remote. Patient agrees to call for assistance. Safety measures in place. Bed alarm activated. Call jeffrey and phone within reach.
[2023-04-01] MEDS: OXYCODONE IR 5 MG TABLET PO ×2 (04:59→21:01)
[2023-04-01] MEDS: SODIUM CHLORIDE 0.9% 1,000 ML 100 ML IV (08:34)
--- NOTE | 2023-04-01 09:30 | CM.DANOTE ---
Addendum entered by Delores Leyva R.N. 04/01/23 10:32: Discharge Note on wrong patient: Discharge assesment corrrect but Note needs correction. CORRECTION NOTE: Initial Discharge Assessment Note: Case reviewed, met with patient and introduced self and role. Payer:[facility] MCR and Medicaid PCP: Millie De Leon. 72 year old presented to ED with daughter with RUQ pain and nausea, imaging done and confirmed stones one of which is stuck in GB neck. Scheduled for surgery today. She lives with daughter and grandchilren in her daughter's home and rents a room. She receives Meals on Wheels. She is A/O, very pleasant and independent. Plan: Once medically cleared, return home to daughter. Dang Leyva RN/DCP Original Note: Initial Discharge Assessment Note: Case reviewed, met with patient. Introduced self and role. Payer: [facility] [employer] and Medicaid PCP: Unknown 22 year old admitted with known gallbladder disease and had been scheduled for outpatient choleycystectomy in a few weeks. She was admitted with worsening RUQ pain and is currently in surgery. Unable to obtain any further history since patient in OR. Plan: Discharge when medically cleared. SEJ Discharge Planning/Care Management CM Discharge Assessment Start: 04/01/23 09:28 Freq: Status: Active Protocol: Document 04/01/23 09:29 (Rec: 04/01/23 09:30 [id number]) Discharge Planning Assessment Assigned Sample Puller Dang Leyva RN/RYANP Advance Directives? No History Provided By Patient Prior Living Arrangements House Household Members children Comment She rents a room from her daughter in house in [place] Type of transporation used prior to Relies on Others admit Independent with ADL's Yes Is patient alert and oriented? Yes Needs Assistance With Home Chores / Shopping Caregiver for Another No Discharge Plan Home Referrals Initiated None needed Additional Comment Expected to dc home without needs, daughter can provide assistance. Review Status In Process Next Review Type Continued Stay Review
[2023-04-01] MEDS: HYDROMORPHONE 0.5 MG INJ IV (09:31)
[2023-04-01] MEDS: LACTATED RINGERS 1,000 ML 42 ML IV (10:35)
--- NOTE | 2023-04-01 10:51 | P.HP_ITS ---
History of Present Illness History of Present Illness Date Patient Seen: 04/01/23 Time Patient Seen: 10:52 Chief complaint: rt abd pain Narrative: 72-year-old woman with a history of biliary colic admitted to the hospital with acute cholecystitis. She developed severe abdominal pain over the past 48 hours which has been persistent. She presented to the [facility] Emergency Department March 31 where an ultrasound demonstrated a stone lodged within the neck gallbladder. At admission afebrile, white blood cell count 7, normal LFTs including total bilirubin. Prior abdominal surgery includes tubal ligation. She tolerated general anesthesia without issue no issues with hemorrhage. Past medical history is significant for [id number] diabetes and hypertension. [facility] Medical History Anxiety Cataract Cervical cancer (~1989) Claustrophobia Gastritis GERD (gastroesophageal reflux disease) Glaucoma Heart murmur Hemorrhoid Hepatitis C antibody positive in blood History of urinary incontinence Hyperlipidemia Hypertension Incontinence in female Macular degeneration Non-insulin dependent diabetes mellitus without complication Osteoporosis Seasonal allergies Sleep apnea Wears dentures Surgical History Anesthesia H/O sinus surgery (~1993) H/O: hysterectomy (~1977) History of colonoscopy (~2018) History of tubal ligation (~1977) S/P laparoscopic procedure (~1989) Family History Father History of heart disease Mother Parkinson's disease Dementia Brother Cancer Sister Cancer Diabetes mellitus Grandmother Brain aneurysm Grandfather History of heart disease Grandmother Stroke Family/Other Cancer Social History household members: children Smoking Status: Former smoker alcohol intake: never Meds Home Medications and Allergies Home Medications Medication Instructions Recorded Confirmed Type lancets (Lancets,Ultra Thin) #100 ea 01/14/20 01/15/23 Rx bimatoprost 0.01 % eye drops 1 drop EYE-BOTH DAILY #5 mL 03/15/20 03/31/23 Rx (Lumigan) omega-3 fatty acids 1,000 mg 1,000 mg PO BID 11/29/20 01/15/23 History capsule (Fish Oil Concentrate) lisinopril 20 mg tablet 20 mg PO DAILY #90 tabs 04/06/22 03/31/23 Rx blood sugar diagnostic (Blood #200 ea 04/17/22 01/15/23 Rx Glucose Test strips) glipizide 5 mg tablet 5 mg PO DAILY #90 tabs 04/17/22 03/31/23 Rx metformin 500 mg tablet,extended 2,000 mg PO 1500 03/31/23 03/31/23 History release 24 hr pioglitazone 15 mg tablet 15 mg PO 1500 03/31/23 03/31/23 History rosuvastatin 10 mg tablet 5 mg PO BEDTIME 03/31/23 03/31/23 History Allergies Allergy/AdvReac Type Severity Reaction Status Date / Time No Known Drug Allergies Allergy Verified 03/31/23 19:50 Exam Vital Signs (past 8 hours): - 04/01/23 03:45 04/01/23 06:00 04/01/23 07:00 Temperature 97.3 F L 97.8 F Pulse Rate 87 80 Respiratory Rate 18 17 Blood Pressure 122/44 L 117/41 L Pulse Oximetry 100 95 95 Oxygen Delivery Method Room Air Oxygen Flow Rate 0 0 0 04/01/23 10:28 Temperature 100.2 F H Pulse Rate 82 Respiratory Rate 20 Blood Pressure 111/63 Pulse Oximetry 94 Oxygen Delivery Method Room Air Oxygen Flow Rate Oxygen Delivery Method Room Air Oxygen Flow Rate 0 Narrative Exam Narrative: General adult woman alert oriented no acute distress Chest nonlabored respiration Abdomen tender right upper quadrant. Extremities warm well perfused Objective Labs 03/31/23 20:15 03/31/23 20:15 Labs: Laboratory Results - last 24 hr 03/31/23 03/31/23 03/31/23 20:00 20:15 20:15 WBC 7.3 RBC 4.00 Hgb 12.5 Hct 36.2 MCV 90.5 MCH 31.2 MCHC 34.5 RDW 12.6 Plt Count 205 Neut % (Auto) 67.8 Lymph % (Auto) 23.4 L Craven % (Auto) 7.3 Eos % (Auto) 0.9 L Baso % (Auto) 0.6 Neut # (Auto) 5000 Lymph # (Auto) 1700 Craven # (Auto) 500 Eos # (Auto) 100 Baso # (Auto) 0 Sodium 135 L Potassium 4.1 Chloride 101 Carbon Dioxide 24 BUN 21 H Creatinine 0.77 Estimated GFR > 60 BUN/Creatinine Ratio 27.3 H Glucose 150 H Calcium 9.1 Total Bilirubin 0.5 AST 17 ALT 19 Alkaline Phosphatase 63 Total Protein 8.1 Albumin 4.4 Globulin 3.7 Albumin/Globulin Ratio 1.2 Lipase 128 Urine RBC 10-30/hpf H Urine WBC 30-100/hpf H Ur Squamous Epith Cells 1-5 /hpf Urine Bacteria Moderate (10-30) H Ur Culture Indicated? Specimen cultured Micro UA Comment Assessment & Plan Assessment and plan (1) Acute cholecystitis: Status: Acute Assessment & Plan narrative: 72-year-old woman with symptoms and radiographic findings consistent with acute cholecystitis. Recommended that we proceed to the operating room for laparoscopic cholecystectomy. Overview of the operation was discussed. Operati ve risks including hemorrhage, infection, damage to surrounding structures, bile duct injury, conversion open were discussed. Questions have been answered she is in agreement with this plan. She provides her written and verbal consent to proceed. Quality VTE Deep Vein Thrombosis/Pulmonary Embolism Present on Admission: No
--- NOTE | 2023-04-01 10:57 | P.OP_ITS ---
Operative Date/Time/Diagnoses Date of procedure: 04/01/23 Time of procedure: 10:57 Pre-op diagnosis: Acute cholecystitis Post-op diagnosis: same Procedure & Clinicians Procedure: Laparoscopic cholecystectomy Same procedure as scheduled: Yes Indications: Symptoms and radiographic findings consistent with acute cholecystitis Surgeon: Ham Tsai Click Yes if Unassisted: Yes Anesthesia Type: General Operative Notes Findings: Numerous gallstones. Chronic cholecystitis, omentum fused to liver gallbladder. Tense distended gallbladder Specimen(s): other (Gallbladder) Estimated Blood Loss (mL): 20 Procedure in detail: The patient was placed supine on the table and bilateral lower extremity compr ession devices were applied. Anesthesia was induced they were intubated with an endotracheal tube and received 2g of Ancef. A time-out was performed. They were prepped and draped in sterile fashion. An infraumbilical incision was made. The fascia was elevated incised and the abdomen was entered atraumatically. A blunt tip 12mm balloon trocar was then inserted, pneumoperitoneum was establishe d and inspection of the abdomen demonstrated no evidence of injury. They were placed head up and right side up and then a 11 mm port was placed high in the epigastrium and two 5mm in the right upper quadrant. The gallbladder was grasped by the fundus and retracted over the liver and retracted laterally by the infundibulum. There was omentum well adhered to the liver and gallbladder which was taken down with electrocautery. The gallbladder was tense and distended. It was percutaneously aspirated. Using electrocautery the lateral plane between the gallbladder and the liver was opened towards the fundus. The gallbladder was then retracted laterally and the medial plane was developed in the same manner. With the gallbladder mobilized the bottom of the cystic plate was visualized. The hepatocystic triangle was meticulosly skeletonized with blunt dissection of fat and fibrous tissue from both the front and the back. Only two structures were then clearly seen entering the gallbladder the cystic duct and the cystic artery. With the critical view of safety fully established the cystic duct was clipped twice proximally and once distally using the 10 mm Weck hemoclip applied under direct visualization and then sharply divided. The cystic artery was divided in the same fashion. The gallbladder was removed from the liver bed using electro cautery. The liver bed was then inspected for hemostasis and this was achieved. The abdomen was irrigated with sterile saline and inspection was made that showed the clips in good position. The specimen was removed using Endo-Catch. The abdomen was desufflated. The umbilical fascia was closed with 0 Vicryl in a [id number] fashion under direct visualization. Skin incisions were irrigated and closed with 4-0 Monocryl. 30 ml of 0.25% bupivacaine was infiltrated into the subcutaneous tissue of the incisions. The wounds were sealed with Dermabond. Patient emerged from anesthesia was extubated and transferred to recovery in stable condition. The sponge and instrument count at the end of the operation was correct. Complications: none Post-operative Condition: stable Disposition: same day surgery
[2023-04-01] MEDS: CEFAZOLIN 2 GM/100 ML PREMIX 100 ML IV (11:14)
--- NOTE | 2023-04-01 11:21 | SUR.OPER ---
Supine on padded OR bed, head on pillow, safety belt at thigh, left arm padded and tucked at side. Right arm secured on padded arm board <90 degrees abduction. Legs uncrossed. Padded footboard in place. Tape over blanket to secure lower legs.
[2023-04-01] MEDS: ONDANSETRON 4 MG/2 ML INJ IV ×2 (12:39→12:49)
[2023-04-01] MEDS: HYDROMORPHONE 2 MG INJ IV ×2 (12:40→12:50)
[2023-04-01] MEDS: METOCLOPRAMIDE 10 MG/2 ML INJ IV (13:05)
[2023-04-01] MEDS: ALBUTEROL/IPRATROPIUM 3 ML AMPUL INH (13:16)
--- NOTE | 2023-04-01 13:23 | SUR.PHASEI ---
Patient having to be reminded constantly to take deep breaths; oxygen saturation decreases to 85% on 4 liters via nasal cannula when patient sleeping; possible apnea undiagnosed according to patient. Lungs clear to air when auscultating. Duoneb treatment initiated at 1315. Nausea better after 8 mg of Zofran IV and Reglan 10 mg IV. Blood sugar 174.
[2023-04-01] MEDS: ACETAMINOPHEN 325 MG TABLET 650 MG PO (21:00)
[2023-04-02 01:50] VITALS: BP 130/62; PULSE 86; RESP 16; TEMP 37.2; O2SAT 98
[2023-04-02] MEDS: HYDROMORPHONE 0.5 MG INJ IV (01:52)
[2023-04-02 01:56] VITALS: O2SAT 98
[2023-04-02 05:00] VITALS: BP 142/56; PULSE 99; RESP 20; TEMP 36.9; O2SAT 92
[2023-04-02 06:00] VITALS: O2SAT 98
[2023-04-02 08:45] VITALS: BP 127/45; PULSE 96; RESP 17; TEMP 36.6; O2SAT 96
[2023-04-02 10:00] VITALS: O2SAT 96
[2023-04-02] MEDS: IBUPROFEN 600 MG TABLET PO (10:05)
[2023-04-02] MEDS: ACETAMINOPHEN 325 MG TABLET 650 MG PO (10:05)
== END 2023-04-02 10:15 | disposition home or self-care (01) ==
LOC: ED 19:52 → AC 21:58
PROVIDERS: Admitting Provider Surgery; Emergency Provider Emergency Medicine; Family Provider Nurse Practitioner; PCP Nurse Practitioner; Visit Provider Surgery
PROC: 0FT44ZZ Resection of Gallbladder, Percutaneous Endoscopic Approach (ICD-10-PCS; CPT 47562; principal; 2023-04-01 11:45)
DX: K80.00 Calculus of gallbladder with acute cholecystitis without obstruction (principal); K82.8 Other specified diseases of gallbladder; I10 Essential (primary) hypertension; E11.9 Type 2 diabetes mellitus without complications; Z79.84 Long term (current) use of oral hypoglycemic drugs
CPT/HCPCS: 47562; 36415; 76705; 80053; 81003; 81015; 82962; 83690; 85025; 87077; 87086; 87186; 93005; 93010; 94760; 96361; 96375; 96376; 99222; 99284; G0378; J0690; J1100; J1170; J2405; J2704; J2765; J3010

== ENCOUNTER → 2023-04-10 08:19 | Outpatient (CLI) | payer MEDICARE, MEDICAID, SELFPAY ==
[2023-04-02 10:17] VITALS: BMI 29.0
[2023-04-11 14:36] LABS: Fecal Immunochemical Test Negative (Negative)
== END ==
PROVIDERS: Family Provider Nurse Practitioner; PCP Nurse Practitioner; Referring Provider Nurse Practitioner; Visit Provider Nurse Practitioner
DX: Z12.11 Encounter for screening for malignant neoplasm of colon (principal)
CPT/HCPCS: 82274

== ENCOUNTER → 2023-04-16 11:16 | Outpatient (CLI) | payer MEDICARE, MEDICAID, SELFPAY ==
[2023-04-02 10:17] VITALS: BMI 29.0
[2023-04-16 11:57] LABS: HEMOLYSIS < 15 (0-50); Sodium 135 mmol/L (137-145)
[2023-04-16 11:58] LABS: Alanine Aminotransferase 20 IU/L (<35); Albumin 4.5 g/dL (3.5-5.0); Albumin Globulin Ratio 1.4 (1.0-2.8); Alkaline Phosphatase 60 U/L (38-126); Aspartate Aminotransferase 17 IU/L (14-36); BUN Creatinine Ratio 39.7 (6-22); Bilirubin Total 0.3 mg/dL (0.2-1.3); Blood Urea Nitrogen 27 mg/dL (7-17); Calcium 9.5 mg/dL (8.4-10.2); Carbon Dioxide 24 mmol/L (22-32); Chloride 102 mmol/L (98-107); Cholesterol 139 mg/dL (140-199); Estimated Glomerular Filt Rate > 60 mL/min (>60); Globulin 3.2 g/dL (1.7-4.1); Glucose 126 mg/dL (80-110); HDL Cholesterol 49 mg/dL (40-60); LDL Cholesterol Calculated 27 mg/dL (<100); Potassium 4.4 mmol/L (3.4-5.1); Total Protein 7.7 g/dL (6.3-8.2); Triglycerides 317 mg/dL (35-150)
[2023-04-16 12:17] LABS: Free T4, Direct Thyroxine 1.06 ng/dL (0.78-2.19)
[2023-04-16 12:31] LABS: Thyroid Stimulating Hormone 1.06 uIU/mL (0.47-4.68)
[2023-04-16 17:06] LABS: Creatinine Urine Random 160.5 mg/dL
[2023-04-16 17:11] LABS: Microalbumi Creatinin Ratio Ur 6.8 ug/mg CR (<30); Microalbumin Urine Random 1.1 mg/dL (0-1.6)
[2023-04-16 20:46] LABS: HIV 1 & 2 Ab/Ag 4th Gen Combo NEGATIVE (NEGATIVE)
[2023-04-17 03:21] LABS: x Labcorp Estim. Avg Glu (eAG) 157 mg/dL (.); x Labcorp Hemoglobin A1c 7.1 % (4.8-5.6)
== END ==
PROVIDERS: Family Provider Nurse Practitioner; PCP Nurse Practitioner; Referring Provider Nurse Practitioner; Visit Provider Nurse Practitioner
DX: E78.5 Hyperlipidemia, unspecified; I10 Essential (primary) hypertension; M81.0 Age-related osteoporosis without current pathological fracture; Z12.11 Encounter for screening for malignant neoplasm of colon; Z79.899 Other long term (current) drug therapy
CPT/HCPCS: 36415; 80053; 80061; 82043; 82570; 83036; 84439; 84443; 84481; 87389

== ENCOUNTER → 2023-06-29 08:03 | Outpatient (CLI) | payer MEDICARE, MEDICAID, SELFPAY ==
[2023-04-02 10:17] VITALS: BMI 29.0
--- NOTE | 2023-06-29 | DI.MG.S_ITS ---
BILATERAL DIGITAL SCREENING MAMMOGRAM 3D/2D WITH CAD: 06/29/2023 CLINICAL: Routine screening. Comparison is made to exams dated: 06/23/2022 mammogram, 06/10/2021 mammogram - [facility], and 04/19/2017 mammogram - [facility]. Both breasts are heterogeneously dense, which may obscure small masses (category c / 51-75% glandular tissue). Current study was also evaluated with a Computer Aided Detection (CAD) system. There are benign calcifications in both breasts. No significant masses, calcifications, or other findings are seen in either breast. There has been no significant interval change. IMPRESSION: BENIGN There is no mammographic evidence of malignancy. A 1 year screening mammogram is recommended. Based on the Tyrer Cuzick model (a risk assessment model) the patient's lifetime risk is 3.0% and her 10 year risk is 2.1%. According to the ACR, ACS, and NCCN guidelines, an annual breast MRI exam along with mammogram is recommended if the patient's lifetime risk is 20% or greater. This exam was interpreted at Station ID: [id number]. NOTE: For mammograms, a report in lay terms will be sent to the patient. Approximately 15% of breast malignancies will not be visualized mammographically. In the management of a palpable breast mass, a negative mammogram must not discourage biopsy of a clinically suspicious lesion. Electronically Signed By: Michael garcia/saman:06/29/2023 13:23:44 letter sent: Normal Exam ACR BI-RADS Category 2: Benign Finding(s) 3342F
== END ==
PROVIDERS: Family Provider Nurse Practitioner; PCP Nurse Practitioner; Referring Provider Nurse Practitioner; Visit Provider Nurse Practitioner
DX: Z12.31 Encounter for screening mammogram for malignant neoplasm of breast (principal)
CPT/HCPCS: 77063; 77067

== ENCOUNTER → 2023-07-16 08:43 | Outpatient (CLI) | payer MEDICARE, MEDICAID, SELFPAY ==
[2023-04-02 10:17] VITALS: BMI 29.0
[2023-07-16 10:07] LABS: Appearance Urine UA CLEAR; Bilirubin Urine UA NEGATIVE (NEGATIVE); Color Urine UA YELLOW; Glucose Urine UA NEGATIVE (Negative); Ketones Urine UA NEGATIVE (NEGATIVE); Leukocyte Esterase Urine UA NEGATIVE (NEGATIVE); Nitrite Urine UA NEGATIVE (Negative); Occult Blood Urine UA TRACE-INTACT (Negative); Protein Urine UA TRACE (Negative); Specific Gravity Urine UA >=1.030 (1.000-1.035)
[2023-07-16 10:15] LABS: Hemoglobin A1C% w Est Avg Glu 6.9 % (4.0-6.0)
[2023-07-16 10:22] LABS: Alanine Aminotransferase 19 IU/L (<35); Albumin 4.2 g/dL (3.5-5.0); Albumin Globulin Ratio 1.4 (1.0-2.8); Alkaline Phosphatase 56 U/L (38-126); Aspartate Aminotransferase 18 IU/L (14-36); Bilirubin Total 0.3 mg/dL (0.2-1.3); Blood Urea Nitrogen 21 mg/dL (7-17); Calcium 9.7 mg/dL (8.4-10.2); Carbon Dioxide 24 mmol/L (22-32); Chloride 103 mmol/L (98-107); Cholesterol 144 mg/dL (140-199); Estimated Glomerular Filt Rate > 60 mL/min (>60); Glucose 158 mg/dL (80-110); HDL Cholesterol 44 mg/dL (40-60); HEMOLYSIS < 15 (0-50); LDL Cholesterol Calculated 43 mg/dL (<100); Potassium 4.7 mmol/L (3.4-5.1); Sodium 137 mmol/L (137-145); Total Protein 7.2 g/dL (6.3-8.2); Triglycerides 286 mg/dL (35-150)
[2023-07-16 10:23] LABS: Bacteria Urine Moderate (10-30); Culture Indicated Urine Specimen Cultured; Hyaline Casts Urine 1-5/LPF; RBC Urine 1-5/HPF (0-5/HPF); Squamous Epithelial Cell Urine 1-5 /HPF (0-5/HPF); WBC Urine 5-10/HPF (0-5/HPF); pH Urine UA 5.5 (4.5-8.0)
== END ==
PROVIDERS: Family Provider Nurse Practitioner; PCP Nurse Practitioner; Referring Provider Nurse Practitioner; Visit Provider Nurse Practitioner
DX: Z79.899 Other long term (current) drug therapy (principal); E78.2 Mixed hyperlipidemia; I10 Essential (primary) hypertension; N39.0 Urinary tract infection, site not specified
CPT/HCPCS: 36415; 80053; 80061; 81001; 83036; 87077; 87086; 87186

== ENCOUNTER → 2023-10-29 08:46 | Outpatient (CLI) | payer MEDICARE, MEDICAID, SELFPAY ==
[2023-04-02 10:17] VITALS: BMI 29.0
[2023-10-29 10:16] LABS: Appearance Urine UA CLEAR; Bilirubin Urine UA NEGATIVE (NEGATIVE); Color Urine UA YELLOW; Glucose Urine UA NEGATIVE (Negative); Ketones Urine UA TRACE (NEGATIVE); Leukocyte Esterase Urine UA NEGATIVE (NEGATIVE); Nitrite Urine UA POSITIVE (Negative); Occult Blood Urine UA NEGATIVE (Negative); Protein Urine UA NEGATIVE (Negative); Specific Gravity Urine UA >=1.030 (1.000-1.035); Urobilinogen Urine UA 0.2 E.U./dL (0.2)
[2023-10-29 10:26] LABS: Bacteria Urine Many (>30); Culture Indicated Urine Specimen Cultured; Hyaline Casts Urine 1-5/LPF; RBC Urine None Seen (0-5/HPF); Squamous Epithelial Cell Urine 0-1 /HPF (0-5/HPF); Urine Volume 10mL (spun); WBC Urine 0-1/HPF (0-5/HPF)
[2023-10-29 10:42] LABS: Hemoglobin A1C% w Est Avg Glu 6.6 % (4.0-6.0)
[2023-10-29 10:45] LABS: Creatinine Urine Random 292.7 mg/dL
[2023-10-29 10:47] LABS: Alanine Aminotransferase 23 IU/L (<35); Albumin 4.4 g/dL (3.5-5.0); Albumin Globulin Ratio 1.4 (1.0-2.8); Alkaline Phosphatase 58 U/L (38-126); Aspartate Aminotransferase 22 IU/L (14-36); BUN Creatinine Ratio 29.6 (6-22); Bilirubin Total 0.5 mg/dL (0.2-1.3); Blood Urea Nitrogen 21 mg/dL (7-17); Calcium 9.9 mg/dL (8.4-10.2); Carbon Dioxide 23 mmol/L (22-32); Chloride 104 mmol/L (98-107); Cholesterol 164 mg/dL (140-199); Estimated Glomerular Filt Rate > 60 mL/min (>60); Globulin 3.2 g/dL (1.7-4.1); Glucose 122 mg/dL (80-110); HDL Cholesterol 44 mg/dL (40-60); HEMOLYSIS < 15 (0-50); LDL Cholesterol Calculated 59 mg/dL (<100); Potassium 4.8 mmol/L (3.4-5.1); Sodium 136 mmol/L (137-145); Total Protein 7.6 g/dL (6.3-8.2); Triglycerides 303 mg/dL (35-150)
[2023-10-29 10:51] LABS: Microalbumi Creatinin Ratio Ur 8.1 ug/mg CR (<30); Microalbumin Urine Random 2.4 mg/dL (0-1.6)
== END ==
PROVIDERS: Family Provider Nurse Practitioner; PCP Nurse Practitioner; Referring Provider Nurse Practitioner; Visit Provider Nurse Practitioner
DX: E78.5 Hyperlipidemia, unspecified (principal); I10 Essential (primary) hypertension; N39.0 Urinary tract infection, site not specified
CPT/HCPCS: 36415; 80053; 80061; 81001; 82043; 82570; 83036; 87077; 87086; 87186

== ENCOUNTER → 2023-11-29 09:06 | Outpatient (CLI) | payer MEDICARE, MEDICAID, SELFPAY ==
[2023-11-05 12:04] VITALS: BMI 29.0
--- NOTE | 2023-11-29 09:09 | DI.ECHO.S_ITS ---
[facility]---------+ [facility] +---------+ : : [address] : : : : [id number] : : : : Phone: [phone]---------+ Echocardiogram Report + + :Name: MARCIAL TINOCO Study Date: 11/29/2023 Height: 63 in : :[facility] ReadingLocation: Weight: 170 lb : : Gender: Female BSA: 1.8 m2 : :: 1950 Age: 73 yrs BP: 149/85 mmHg: :Reason For Study: HYPERTENSION : :Ordering Physician: KRYSTA, : :ANA Performed By: Giuliana Gilmore : :Referring: ANA CHAPARRO : + + Interpretation Summary The ejection fraction is estimated to be 60-65%. There is mild mitral regurgitation. There is mild tricuspid regurgitation. The right ventricular systolic pressure is estimated to be at least 32 mmHg based on an estimated right atrial pressure of 3 mm Hg. Procedure: A two-dimensional transthoracic echocardiogram with color flow and Doppler was performed. The study quality was technically adequate. Comparison is made with the echocardiogram of 04/24/2022. The patient was in sinus rhythm with heart rates between 67-76 bpm during the exam. Left Ventricle: The left ventricle is normal in size and wall thickness. The ejection fraction is estimated to be 60-65%. Left ventricular wall motion is normal. Right Ventricle: The right ventricle is normal in size and function. Atria: The left atrial size is normal. Right atrial size is normal. There is no Doppler evidence for an interatrial shunt. Mitral Valve: The mitral valve is normal in structure and function. There is mild mitral regurgitation. Aortic Valve: The aortic valve is trileaflet. The aortic valve is slightly calcified. There is no aortic valve stenosis. No aortic regurgitation is present. Tricuspid Valve: The tricuspid valve is normal in structure and function. There is mild tricuspid regurgitation. The right ventricular systolic pressure is estimated to be at least 32 mmHg based on an estimated right atrial pressure of 3 mm Hg. Pulmonic Valve: The pulmonic valve leaflets are thin and pliable; valve motion is normal. There is no pulmonic valvular regurgitation. Great Vessels: The aortic root is normal size. The dimensions of the ascending aorta are normal. The IVC is of normal diameter and collapses greater than 50% with a sniff. This suggests a low right atrial pressure of 3 mm Hg. Pericardium/ Pleura There is no pericardial effusion. There is no pleural effusion. MMode/2D Measurements & Calculations LVIDd: 4.0 cm LVOT diam: 1.9 cm LVIDs: 2.5 cm Ao root diam: 3.0 cm FS: 38.5 % asc Aorta Diam: 2.9 cm IVSd: 1.0 cm Ao Arch Diam (Prox Trans): 2.5 cm LVPWd: 0.79 cm LV ibarra. diameter/BSA (cm/m^2): 2.2 LV sys. diameter/BSA (cm/m^2): 1.4 LA A2 area: 15.7 cm2 RA long axis: 4.7 cm LA A4 area: 14.9 cm2 RA area: 13.0 cm2 LA length (vol): 5.0 cm RA vol: 30.5 ml LA vol: 39.6 ml RA : 16.9 ml/m2 LA vol index: 21.9 ml/m2 IVC diam: 1.7 cm RVD1 (basal): 3.3 cm RVD2 (mid): 2.4 cm TAPSE: 1.7 cm Doppler Measurements & Calculations Ao V2 max: 164.5 cm/sec LVOT Max Matthieu: 87.0 cm/sec Ao V2 mean: 117.5 cm/sec LV V1 max P.0 mmHg Ao max P.8 mmHg LV V1 VTI: 18.4 cm Ao mean P.0 mmHg PILO(I,D): 1.5 cm2 Ao V2 VTI: 34.9 cm PILO(V,D): 1.5 cm2 sev ratio: 0.53 PILO indexed to BSA (cm^2/m^2): 0.85 MV E max matthieu: 73.7 cm/sec TR max matthieu: 272.8 cm/sec MV A max matthieu: 93.4 cm/sec TR max P.8 mmHg MV E/A: 0.79 PA V2 max: 153.1 cm/sec Med Peak E' Matthieu: 5.0 cm/sec PA V2 mean: 117.6 cm/sec E/E' med: 14.9 PA mean P.0 mmHg Lat Peak E' Matthieu: 7.2 cm/sec PA pr(Accel): 53.3 mmHg E/E' lat: 10.2 E/e' average: 12.5 MV dec time: 0.18 sec SV(LVOT): 53.7 ml Reading Physician:10:41 AM
--- NOTE | 2023-11-29 09:09 | DI.RAD.S_ITS ---
Bone Density Report Name: MARCIAL TINOCO Age: 73 Sex: Female Ethnicity: Date of : 1950 Indication: postmenopausal; screening for osteoporosis; Referring Provider: ANA CHAPARRO Study: Bone densitometry was performed. Exam Date: November 29, 2023 Accession number: [id number] Bone Density: Region BMD T-score Z-score Classification AP Spine(L1-L4) 0.731 -2.9 -0.6 Osteoporosis Femoral Neck (Left) 0.701 -1.3 0.4 Osteopenia Total Hip (Left) 0.825 -1.0 0.6 Normal Femoral Neck (Right) 0.659 -1.7 0.1 Osteopenia Total Hip (Right) 0.795 -1.2 0.4 Osteopenia Total Hip Mean 0.810 -1.1 0.5 Osteopenia World Health Organization criteria for BMD impression classify patients as: Normal (T-score at or above -1.0), Osteopenia (T-score between -1.0 and -2.5), or Osteoporosis (T-score at or below -2.5). 10-year Fracture Risk: FRAX not reported because: Some T-score for Spine Total or Hip Total or Femoral Neck at or below -2.5 Impression: The patient has osteoporosis, based on the Total Spine T-score. Discussion: INCREASED RISK OF FRACTURE. BONE DENSITY IS UNDESIRABLY LOW AT ONE OR MORE SKELETAL SITES, CONSISTENT WITH POSTMENOPAUSAL OSTEOPOROSIS. This patient's lowest T-score meets the World Health Organization's (WHO) criteria for osteoporosis at one or more sites (T-score -2.5 or below). In untreated patients, the risk of osteoporotic fracture increases approximately two-fold for each 1.0 SD decrease in T-score. Low bone density is not the only risk factor for fracture; also consider factors such as patient's age, frailty or poor health, risk of falling, risk of injury, previous osteoporotic fracture, family history of osteoporosis, cigarette smoking, low body weight, etc. Not everyone with low bone mineral density has osteoporosis; osteomalacia and other metabolic bone disorders should also be considered. Patients who have osteoporosis should be evaluated for specific diseases and conditions (secondary causes) that may cause or contribute to bone loss. The [place] [employer]ocrinologists (AACE) and National Osteoporosis Foundation (NOF) recommend pharmacologic intervention for all postmenopausal women whose T-score is in this range. The patient should follow a healthful lifestyle (good nutrition with adequate calcium and vitamin D, and appropriate weight-bearing exercise). Follow-Up: Consider a repeat BMD and Vertebral Fracture Assessment (VFA) exam in 2 years or sooner if medically necessary, to reassess this patient's status. Reported by: KENNETH GILLIS M.D. on 11/29/2023 12:04:00 PM.
== END ==
PROVIDERS: Family Provider Nurse Practitioner; PCP Nurse Practitioner; Referring Provider Nurse Practitioner; Visit Provider Nurse Practitioner
DX: I08.1 Rheumatic disorders of both mitral and tricuspid valves (principal); I10 Essential (primary) hypertension; M81.0 Age-related osteoporosis without current pathological fracture
CPT/HCPCS: 77080; 93005; 93306

== ENCOUNTER → 2024-01-30 07:58 | Outpatient (CLI) | payer MEDICARE, MEDICAID, SELFPAY ==
[2023-11-05 12:04] VITALS: BMI 29.0
[2024-01-30 08:48] LABS: Hemoglobin A1C% w Est Avg Glu 7.5 % (4.0-6.0)
[2024-01-30 09:09] LABS: Alanine Aminotransferase 28 IU/L (<35); Albumin 4.7 g/dL (3.5-5.0); Albumin Globulin Ratio 1.6 (1.0-2.8); Alkaline Phosphatase 64 U/L (38-126); Aspartate Aminotransferase 24 IU/L (14-36); BUN Creatinine Ratio 26.3 (6-22); Bilirubin Total 0.5 mg/dL (0.2-1.3); Blood Urea Nitrogen 21 mg/dL (7-17); Calcium 9.4 mg/dL (8.4-10.2); Carbon Dioxide 25 mmol/L (22-32); Chloride 105 mmol/L (98-107); Cholesterol 139 mg/dL (140-199); Estimated Glomerular Filt Rate > 60 mL/min (>60); Globulin 2.9 g/dL (1.7-4.1); Glucose 151 mg/dL (80-110); HDL Cholesterol 49 mg/dL (40-60); HEMOLYSIS < 15 (0-50); LDL Cholesterol Calculated 32 mg/dL (<100); Potassium 4.6 mmol/L (3.4-5.1); Sodium 138 mmol/L (137-145); Total Protein 7.6 g/dL (6.3-8.2); Triglycerides 292 mg/dL (35-150)
[2024-01-30 09:18] LABS: Free T3, Triiodothyronine Free 4.55 pg/mL (2.77-5.27); Free T4, Direct Thyroxine 1.16 ng/dL (0.78-2.19)
[2024-01-30 09:32] LABS: Thyroid Stimulating Hormone 1.64 uIU/mL (0.47-4.68)
== END ==
PROVIDERS: Family Provider Nurse Practitioner; PCP Nurse Practitioner; Referring Provider Nurse Practitioner; Visit Provider Nurse Practitioner
DX: Z79.899 Other long term (current) drug therapy (principal); E78.5 Hyperlipidemia, unspecified; M81.0 Age-related osteoporosis without current pathological fracture; I10 Essential (primary) hypertension
CPT/HCPCS: 36415; 80053; 80061; 83036; 84439; 84443; 84481

== ENCOUNTER 2024-02-15 14:30 | Outpatient (RCR) | payer MEDICARE, MEDICAID, SELFPAY ==
[2023-11-05 12:04] VITALS: BMI 29.0
--- NOTE | 2023-12-31 17:47 | PT.OIE ---
Current Diagnoses Muscle weakness (generalized) (12/31/23) Mixed incontinence (12/31/23) Past Medical History (Last Updated 12/29/23 @ 17:42 by ESTELA Ramos) Anxiety Cataract Cervical cancer (~1989) Claustrophobia Encounter for fitting and adjustment of pessary Gastritis GERD (gastroesophageal reflux disease) Glaucoma Heart murmur Hemorrhoid Hepatitis C antibody positive in blood History of urinary incontinence Hyperlipidemia Hypertension Incontinence in female Macular degeneration Non-insulin dependent diabetes mellitus without complication Osteoporosis Seasonal allergies Sleep apnea Wears dentures Past Surgical History (Last Reviewed 12/29/23 @ 17:41 by ESTELA Ramos) Anesthesia H/O sinus surgery (~1993) History of colonoscopy (~2018) History of tubal ligation (~1977) S/P laparoscopic procedure (~1989) Visit Care Team Role Provider Type ESTELA Ramos Family Provider Advanced Cubing Machine Tender Primary Care Provider Specialty: Family Practice Address: [address] [place] [address] Email: [email or web address] Francine Alva DO Attending Provider Physician Referring Provider Specialty: WELFARE INVESTIGATOR Address: [address] [place] [address], [address], [place], [facility] Email: [email or web address] Physical Therapy Initial Evaluation PT-OP-A Visit Information Start: 12/28/23 18:15 Freq: Status: Active Protocol: Document 12/31/23 11:16 LRN (Rec: 12/31/23 12:59 LRN [id number]) Out-Patient Physical Therapy Visit Information Visit Information Visit Type Initial Evaluation Visit Note Pt had to use BR to start. DA present throughout session to interpret when needed. Visit Start Time 11:16 Visit Stop Time 12:11 Visit Number 1 Evaluation Information Evaluation Date 12/31/23 Precautions Precautions Pessary, Type II Diabetes, Osteoporosis, Gall bladder surgery - 05/2023, Hepatitis B , Blood controlled w/meds (avg is 135/80). [place] language is Croatian. PT-OP-B Current Condition Start: 12/28/23 18:15 Freq: Status: Active Protocol: Document 12/31/23 11:16 LRN (Rec: 12/31/23 12:59 LRN [id number]) Current Condition History of Current Condition Onset Date 2 yrs ago Current Complaints Feels she needs to urinate and sometimes can't hold it. History of Current Condition Not able to maintain continence and wears an adult diaper. Fit for pessary 2 wks ago, and has not felt urinary leakage with cough, but has leakage with urgency ( sometimes not able to maiintain urianry continence for any length of time when coming to stand). Prior to loss of control she did have some urinary leakage. Prior Treatments and Tests None Developmental History Developmental History G5, P5 Treatment Goals Patient/Caregiver Goals Pt goals: Control urinary leakage with transfers and urge. Continenece with an urge. HEP. Personal Factors Other Personal Factors That May Effect [place] language is Croatian, Therapy/Recovery Osteoporosis, Type II Diabetes . PT-OP-C Subjective Start: 12/28/23 18:15 Freq: Status: Active Protocol: Document 12/31/23 11:16 LRN (Rec: 12/31/23 12:59 LR [id number]) Patient Questionnaires Pelvic Pain and Urgency/Frequency Patient Symptom Scale Pelvic Pain Score 13 PT-OP-I Pelvic Floor Start: 12/28/23 18:15 Freq: Status: Active Protocol: Document 12/31/23 11:16 LRN (Rec: 12/31/23 12:59 LRN [id number]) Pelvic Floor Assessment Urine Urinary Symptoms Urge Sensation,Dribbling After Urination,Falling Out Feeling /Heavy Leakage Size Large Leakage Cause Cough,Exercise,Lifting,Sneeze, Urge Other Leakage Causes With Pessary pt is continent except with a strong urge, and sit<>stand. Leaks Per Day 5 Voiding Frequency 3 Nocturia 4 Pads Used In 24 Hours 5 Urine Pad Type Depends Bowel Bowel Movement Frequency 1 [place] Stool Chart Type 1-7 4 Pelvic Clock Pelvic Clock Other External PF tender at 3 O' Clock Perineal Descent Resting Absent Bearing Present Contraction Ability Voluntary Contraction Weak Voluntary Relaxation Moderate Manual Muscle Testing Left 2 Manual Muscle Testing Right 1 Manual Muscle Testing Anterior 0 Manual Muscle Testing Posterior 2 Muscle Endurance (Seconds) 1 Number of Quick Contractions In 10 4 Seconds PT-OP-J Posture/Palpation/Skin Start: 12/28/23 18:15 Freq: Status: Active Protocol: Document 12/31/23 11:16 LRN (Rec: 12/31/23 12:59 LRN [id number]) Posture Evaluation Position Standing L-Spine Posture Increased Lordosis Shoulder Posture (L) Elevated Scapula Posture (R) Rotated Down Arm Posture (L) Internally Rotated,(R) Internally Rotated Pelvis Posture Anteriorly Tilted,(R) PSIS Posterior Knee Posture (L) Genu Varus,(R) Genu Varus Comments Posture Comments Straightened upper back. PT-OP-K Range of Motion Start: 12/28/23 18:15 Freq: Status: Active Protocol: Document 12/31/23 11:16 LRN (Rec: 12/31/23 12:59 LRN [id number]) Lumbar Spine Range of Motion Lumbar Spine Active Degrees Testing Position Standing Flexion 83 Extension 10 Rotation Left 10 Rotation Right 10 Lateral Flexion Left 10 ROM Limitations Soft Tissue Tightness Hip Goniometric Range of Motion Hip Right Passive Testing Position Supine Abduction 30 Internal Rotation 25 External Rotation 65 Left Passive Testing Position Supine Abduction 20 Internal Rotation 20 External Rotation 50 PT-OP-M Strength Start: 12/28/23 18:15 Freq: Status: Active Protocol: Document 12/31/23 11:16 LRN (Rec: 12/31/23 12:59 LRN [id number]) Trunk Strength Trunk Manual Muscle Testing Core Stabilization Pt is not able to maintain core stability with MMT of LE' s. Hip Strength Hip Manual Muscle Testing Right Flexion (L2) 4+ Good+ Extension (S1) 4+ Good+ Abduction 3+ Fair+ Internal Rotation 4+ Good+ Comments Strength is 5/5 except as indicated above. Left Extension (S1) 3 Fair Internal Rotation 3+ Fair+ Comments Strength is 5/5 except as indicated above. PT-OP-Q Treatments Start: 12/28/23 18:15 Freq: Status: Active Protocol: Document 12/31/23 11:16 LRN (Rec: 12/31/23 12:59 LRN [id number]) Self-Care/Home Management Treatment Education Patient Education Home Exercise Program Other Education Discussed results of evaluation, attendance compliance, goals, and plan of care (POC). Pt agreeable to attendance compliance, goals and POC. Issued, discussed, & reviewed Bladder Diary for pt to complete over the next 7 days. Explained how to fill out diary and counting of urination times for 2 different diaries for tracking of bladder. Activities Self-Care/Home Management Activities Issued & reviewed HEP: Kegel ex's and discussed exercise of Quick Flicks, Long Holds and Aggravators. Issued handout for transfers of coordinating breath and Kegels. PT-OP-T Assessment and Plan Start: 12/28/23 18:15 Freq: Status: Active Protocol: Document 12/31/23 11:16 LRN (Rec: 12/31/23 12:59 LRN [id number]) Physical Therapy Assessment Rehab Potential Rehabilitation Potential Good Evaluation Complexity Number of Personal Factors/Comorbidities 1-2 Number of Body Systems Impaired 4 or More Clinical Presentation at Evaluation Evolving Impairments Impairments Coordination,Pain,Posture,ROM, Soft Tissue Mobility,Strength, Transfers Goals Three Impairment Urge incontinence. Impairment Continenece with an urge. Short Term Goal (STG) Pt will be educated in urge deference techinque. STG Duration 6 wks-02/18/24 Squaring Shear Operator Goal (LTG) Pt will be able to make it to the bathroom without urinary leakage LTG Duration 12 wks-03/24/24 Two Impairment Stress Urinary Incontinence. Impairment Urinary leakage with transfers and urge. Short Term Goal (STG) Pt will be educated in core pressure management with transfers, body mechanics for daily ADLS (gardening). 12/31/23: Pt educated in core pressure management with sup< >sit<>stand transfers. STG Duration 6 wks-02/18/24 Detention Goal (LTG) Pt will be able to maintain urinary continence with transfers rolling in bed or sit<>stand transfers. LTG Duration 12 wks-03/24/24 One Impairment Pt lacks appropriate self care HEP. Short Term Goal (STG) Pt education in PF contractions in isolation substitute muscles, and educated in proper vulvar/ genital care. STG Duration 6 wks-02/18/24 Squaring Shear Operator Goal (LTG) Pt will be independent with a self care HEP of PF/core strengthening and hip ROM exercises. 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 The pt presents with mixed urinary incontinence due to PF weakness, who was recently fitted for a pessary and now has urinary leakage mainly with a strong urge and cough ( as long as pessary is in place ). On internal exam, the pt's pessary had dropped down close to the vaginal opening, close to the first knuckle deep depth, making assessment of her deep PF muscles impossible. She demonstrates poor core pressure management. Her external PF tissues are dry with tenderness/ redness at the lateral L labia minora; therefore she would benefit from a topical estrogen therapy to improve her PF tissue health. Pt education is needed for care of her genital/vulvar care. The pt will benefit from skilled physical therapy to work towards acheiving the above stated goals. Physical Therapy Plan Frequency and Duration Frequency of Treatment 1x/Week Duration of treatment (weeks) 12 Plan of Care Start Date 12/31/23 Plan of Care End Date 03/24/24 Therapeutic Interventions Therapeutic Interventions Home Exercise Program,Manual Therapy,Neuromuscular Re- education,Self-Care/Home Management,Soft Tissue Mobilization,Therapeutic Activities,Therapeutic Exercises Modalities Cold Pack/Ice Massage,Electric Stimulation,Hot Packs Next Visit Focus/Plan Next Note Type Treatment Note Next Visit Plan Next: Assess bladder diary with recommendations and discussion of fluid intake/ ouput (AM/PM), nighttime voiding frequency, norms for voiding and fluid intake, education and discussion of how to have Bowel movements. Education: PF contractions in isolation of substitute muscles, coordination of proper breaths with ADLs, transfers, body mechanics and exercise. Education proper vulvar and perineal care with handout issued. Discussion of different pads and usage (urine vs menstrual) . Manual: Sacral balancing. Hip stretches L>R (Peng IR, ER, AB), general hip strengthening. PF strengthening (anterior > posterior) in isolation of substitute muscles.
--- NOTE | 2023-12-31 17:47 | PT.OPPOC ---
Physical, Occupational & Speech Therapy At [facility] Current Diagnoses Muscle weakness (generalized) (12/31/23) Mixed incontinence (12/31/23) Visit Care Team Role Provider Type ESTELA Ramos Family Provider Advanced Conveyor Operator Primary Care Provider Specialty: Family Practice Address: [address] [place] [address], [id number] Email: [email or web address] Francine Alva DO Attending Provider Physician Referring Provider Specialty: DIRECTOR CASE MANAGEMENT Address: [address] [place] [address], [address], [place], [address] Email: [email or web address] Plan Of Care PT-OP-T Assessment and Plan Start: 12/28/23 18:15 Freq: Status: Active Protocol: Document 12/31/23 11:16 LRN (Rec: 12/31/23 12:59 LRN [id number]) Physical Therapy Assessment Rehab Potential Rehabilitation Potential Good Evaluation Complexity Number of Personal Factors/Comorbidities 1-2 Number of Body Systems Impaired 4 or More Clinical Presentation at Evaluation Evolving Impairments Impairments Coordination,Pain,Posture,ROM, Soft Tissue Mobility,Strength, Transfers Goals Three Impairment Urge incontinence. Impairment Continenece with an urge. Short Term Goal (STG) Pt will be educated in urge deference techinque. STG Duration 6 wks-02/18/24 Alf Goal (LTG) Pt will be able to make it to the bathroom without urinary leakage LTG Duration 12 wks-03/24/24 Two Impairment Stress Urinary Incontinence. Impairment Urinary leakage with transfers and urge. Short Term Goal (STG) Pt will be educated in core pressure management with transfers, body mechanics for daily ADLS (gardening). 12/31/23: Pt educated in core pressure management with sup< >sit<>stand transfers. STG Duration 6 wks-02/18/24 Alf Goal (LTG) Pt will be able to maintain urinary continence with transfers rolling in bed or sit<>stand transfers. LTG Duration 12 wks-03/24/24 One Impairment Pt lacks appropriate self care HEP. Short Term Goal (STG) Pt education in PF contractions in isolation substitute muscles, and educated in proper vulvar/ genital care. STG Duration 6 wks-02/18/24 Backup Administrative Coordinator Goal (LTG) Pt will be independent with a self care HEP of PF/core strengthening and hip ROM exercises. LTG Duration 12 wks-03/24/24 Assessment Summary Assessment Pt is a 73 yo [place] speaking female who is in attendance with her daughter as dye weigher as needed. The pt presents with mixed urinary incontinence due to PF weakness, who was recently fitted for a pessary and now has urinary leakage mainly with a strong urge and cough ( as long as pessary is in place ). On internal exam, the pt's pessary had dropped down close to the vaginal opening, close to the first knuckle deep depth, making assessment of her deep PF muscles impossible. She demonstrates poor core pressure management. Her external PF tissues are dry with tenderness/ redness at the lateral L labia minora; therefore she would benefit from a topical estrogen therapy to improve her PF tissue health. Pt education is needed for care of her genital/vulvar care. The pt will benefit from skilled physical therapy to work towards acheiving the above stated goals. Physical Therapy Plan Frequency and Duration Frequency of Treatment 1x/Week Duration of treatment (weeks) 12 Plan of Care Start Date 12/31/23 Plan of Care End Date 03/24/24 Therapeutic Interventions Therapeutic Interventions Home Exercise Program,Manual Therapy,Neuromuscular Re- education,Self-Care/Home Management,Soft Tissue Mobilization,Therapeutic Activities,Therapeutic Exercises Modalities Cold Pack/Ice Massage,Electric Stimulation,Hot Packs Next Visit Focus/Plan Next Note Type Treatment Note Next Visit Plan Next: Assess bladder diary with recommendations and discussion of fluid intake/ ouput (AM/PM), nighttime voiding frequency, norms for voiding and fluid intake, education and discussion of how to have Bowel movements. Education: PF contractions in isolation of substitute muscles, coordination of proper breaths with ADLs, transfers, body mechanics and exercise. Education proper vulvar and perineal care with handout issued. Discussion of different pads and usage (urine vs menstrual) . Manual: Sacral balancing. Hip stretches L>R (Peng IR, ER, AB), general hip strengthening. PF strengthening (anterior > posterior) in isolation of substitute muscles. Plan of Care Dates Plan of Care Start Date 12/31/23 Plan of Care End Date 03/24/24 Electronically Signed by: Marlene Bajwa, PT 01/01/24 0848 If you are in agreement with this Plan of Care, please return a signed and dated copy. I have reviewed this Plan of Care and certify that the skilled therapy services above are required to meet the patient?s needs. Physician Signature Date Printed Name and Credentials Clinical Instructor Signature Printed Name and Credentials
--- NOTE | 2024-01-07 17:04 | PT.OTN ---
Current Diagnoses Muscle weakness (generalized) (01/07/24) Mixed incontinence (01/07/24) Physical Therapy Treatment Note PT-OP-A Visit Information Start: 12/28/23 18:15 Freq: Status: Active Protocol: Document 01/07/24 09:52 LRN (Rec: 01/07/24 10:36 LRN [id number]) Out-Patient Physical Therapy Visit Information Visit Information Visit Type Treatment Note Visit Start Time 09:52 Visit Stop Time 10:32 Visit Number 2 Evaluation Information Evaluation Date 12/31/23 Precautions Precautions Pessary, Type II Diabetes, Osteoporosis, Gall bladder surgery - 05/2023, Hepatitis B , Blood controlled w/meds (avg is 135/80). [place] language is Beninese. PT-OP-B Current Condition Start: 12/28/23 18:15 Freq: Status: Active Protocol: Document 12/31/23 11:16 LRN (Rec: 12/31/23 12:59 LRN [id number]) Current Condition History of Current Condition Onset Date 2 yrs ago Current Complaints Feels she needs to urinate and sometimes can't hold it. History of Current Condition Not able to maintain continence and wears an adult diaper. Fit for pessary 2 wks ago, and has not felt urinary leakage with cough, but has leakage with urgency ( sometimes not able to maiintain urianry continence for any length of time when coming to stand). Prior to loss of control she did have some urinary leakage. Prior Treatments and Tests None Developmental History Developmental History G5, P5 Treatment Goals Patient/Caregiver Goals Pt goals: Control urinary leakage with transfers and urge. Continenece with an urge. HEP. Personal Factors Other Personal Factors That May Effect [place] language is Beninese, Therapy/Recovery Osteoporosis, Type II Diabetes . PT-OP-C Subjective Start: 12/28/23 18:15 Freq: Status: Active Protocol: Document 01/07/24 09:52 LRN (Rec: 01/07/24 10:36 LRN [id number]) OP-PT Subjective Patient Comments Patient Comments States she can't write well, so didn't do the bladder diary , stating confusion. PT-OP-I Pelvic Floor Start: 12/28/23 18:15 Freq: Status: Active Protocol: Document 12/31/23 11:16 LRN (Rec: 12/31/23 12:59 LRN [id number]) Pelvic Floor Assessment Urine Urinary Symptoms Urge Sensation,Dribbling After Urination,Falling Out Feeling /Heavy Leakage Size Large Leakage Cause Cough,Exercise,Lifting,Sneeze, Urge Other Leakage Causes With Pessary pt is continent except with a strong urge, and sit<>stand. Leaks Per Day 5 Voiding Frequency 3 Nocturia 4 Pads Used In 24 Hours 5 Urine Pad Type Depends Bowel Bowel Movement Frequency 1 [place] Stool Chart Type 1-7 4 Pelvic Clock Pelvic Clock Other External PF tender at 3 O' Clock Perineal Descent Resting Absent Bearing Present Contraction Ability Voluntary Contraction Weak Voluntary Relaxation Moderate Manual Muscle Testing Left 2 Manual Muscle Testing Right 1 Manual Muscle Testing Anterior 0 Manual Muscle Testing Posterior 2 Muscle Endurance (Seconds) 1 Number of Quick Contractions In 10 4 Seconds PT-OP-J Posture/Palpation/Skin Start: 12/28/23 18:15 Freq: Status: Active Protocol: Document 12/31/23 11:16 LRN (Rec: 12/31/23 12:59 LRN [id number]) Posture Evaluation Position Standing L-Spine Posture Increased Lordosis Shoulder Posture (L) Elevated Scapula Posture (R) Rotated Down Arm Posture (L) Internally Rotated,(R) Internally Rotated Pelvis Posture Anteriorly Tilted,(R) PSIS Posterior Knee Posture (L) Genu Varus,(R) Genu Varus Comments Posture Comments Straightened upper back. PT-OP-K Range of Motion Start: 12/28/23 18:15 Freq: Status: Active Protocol: Document 12/31/23 11:16 LRN (Rec: 12/31/23 12:59 LRN [id number]) Lumbar Spine Range of Motion Lumbar Spine Active Degrees Testing Position Standing Flexion 83 Extension 10 Rotation Left 10 Rotation Right 10 Lateral Flexion Left 10 ROM Limitations Soft Tissue Tightness Hip Goniometric Range of Motion Hip Right Passive Testing Position Supine Abduction 30 Internal Rotation 25 External Rotation 65 Left Passive Testing Position Supine Abduction 20 Internal Rotation 20 External Rotation 50 PT-OP-M Strength Start: 12/28/23 18:15 Freq: Status: Active Protocol: Document 12/31/23 11:16 LRN (Rec: 12/31/23 12:59 LRN [id number]) Trunk Strength Trunk Manual Muscle Testing Core Stabilization Pt is not able to maintain core stability with MMT of LE' s. Hip Strength Hip Manual Muscle Testing Right Flexion (L2) 4+ Good+ Extension (S1) 4+ Good+ Abduction 3+ Fair+ Internal Rotation 4+ Good+ Comments Strength is 5/5 except as indicated above. Left Extension (S1) 3 Fair Internal Rotation 3+ Fair+ Comments Strength is 5/5 except as indicated above. PT-OP-Q Treatments Start: 12/28/23 18:15 Freq: Status: Active Protocol: Document 01/07/24 09:52 LRN (Rec: 01/07/24 10:36 LRN [id number]) Therapeutic Exercises Supine Exercises Fig 4 stretch Supine Exercise Name Hip ER stretch-Fig 4 Side bilateral Reps/Minutes 6' (2x L, 1x R) Comments L hip tighter. Cued to breath with PF stretch on inhale Piriformis stretch Supine Exercise Name KTC-ankle over knee ( Piriformis stretch) Side bilateral Equipment Used towel Reps/Minutes 6' (2x L, 1x R) Comments L hip more tight. Cued to breath with PF stretch on inhale Neuro Re-Education Treatment Coordination Activities Transfers w/breath Details Transfer sit<>sup>stand with core pressure mgmt breathing Reps/Duration 3' Comments Extra time taken for training, much v. cuing needed. Self-Care/Home Management Treatment Education Other Education Discussed filling out of bladder diary and her confusion with that and taking meds. Discussed how pt could complete diary with general notation of foods and discussed how to track drinks (premeasuring). Encouraged pt to complete diary. Urge deference training/ education and discussion. Activities Self-Care/Home Management Activities Issued & reviewed handout for urge deference training. Issued & reviewed HEP: Piriformis and Fig 4 stretch. Issued & reviewed HEP: Piriformis (KTC ankle over knee, knee to opp shdr, and Fig 4 stretch) PT-OP-T Assessment and Plan Start: 12/28/23 18:15 Freq: Status: Active Protocol: Document 01/07/24 09:52 LRN (Rec: 01/07/24 10:36 LRN [id number]) Physical Therapy Assessment Goals Three Impairment Urge incontinence. Impairment Continenece with an urge. Short Term Goal (STG) Pt will be educated in urge deference techinque. 01/07/24: Issued & reviewed handout for urge deference training. STG Duration 6 wks-02/18/24 (01/07/24: MET GOAL) Long-Term Goal (LTG) Pt will be able to make it to the bathroom without urinary leakage LTG Duration 12 wks-03/24/24 Two Impairment Stress Urinary Incontinence. Impairment Urinary leakage with transfers and urge. Short Term Goal (STG) Pt will be educated in core pressure management with transfers, body mechanics for daily ADLS (gardening). 12/31/23: Pt educated in core pressure management with sup< >sit<>stand transfers. 01/07/24: Training for transfers w/breath for core pressure management (sit<>sup) . STG Duration 6 wks-02/18/24 progressed 05/24 Artificial Candy Maker Goal (LTG) Pt will be able to maintain urinary continence with transfers rolling in bed or sit<>stand transfers. LTG Duration 12 wks-03/24/24 One Impairment Pt lacks appropriate self care HEP. Short Term Goal (STG) Pt education in PF contractions in isolation substitute muscles, and educated in proper vulvar/ genital care. STG Duration 6 wks-02/18/24 Long-Term Goal (LTG) Pt will be independent with a self care HEP of PF/core strengthening and hip ROM exercises. 01/07/24: HEP: Piriformis ( KTC ankle over knee, knee to opp shdr, and Fig 4 stretch) LTG Duration 12 wks-03/24/24 progressed Assessment Summary Assessment 73 yo [place] far[place] speaking female with DA attending as diplomatic interpreter/translator as needed; therefore extra time was needed with all activities due to speaking slowly when giving instructions for best pt understanding of instructions. Today, pt needing encouragement to do bladder diary. Not able to assess PF deep ms due to pt reapplied pessary yesterday. Needs further training for coordination of transfers w/ breath. She shows good tolerance to hip stretches. Physical Therapy Plan Frequency and Duration Frequency of Treatment 1x/Week Duration of treatment (weeks) 12 Plan of Care Start Date 12/31/23 Plan of Care End Date 03/24/24 Next Visit Focus/Plan Next Note Type Treatment Note Next Visit Plan Next: Assess bladder diary with recommendations and discussion of fluid intake/ ouput (AM/PM), nighttime voiding frequency, norms for voiding and fluid intake, education and discussion of how to have Bowel movements. Assess PF strength if pt doesn't have pessary. Review issued HEP and urge deference technique. Education: PF contractions in isolation of substitute muscles, coordination of proper breaths with ADLs, transfers, body mechanics and exercise. Education proper vulvar and perineal care with handout issued. Discussion of different pads and usage (urine vs menstrual) . Manual: Sacral balancing. Hip stretches L>R (Peng IR, ER, AB), general hip strengthening. PF strengthening (anterior > posterior) in isolation of substitute muscles.
--- NOTE | 2024-01-14 12:09 | PT.OTN ---
Current Diagnoses Muscle weakness (generalized) (01/14/24) Mixed incontinence (01/14/24) Physical Therapy Treatment Note PT-OP-A Visit Information Start: 12/28/23 18:15 Freq: Status: Active Protocol: Document 01/14/24 09:05 LRN (Rec: 01/14/24 09:51 LRN [id number]) Out-Patient Physical Therapy Visit Information Visit Information Visit Type Treatment Note Visit Note Pt 5' late due to BR stop to start. Visit Start Time 09:05 Visit Stop Time 09:43 Visit Number 3 Evaluation Information Evaluation Date 12/31/23 Precautions Precautions Pessary, Type II Diabetes, Osteoporosis, Gall bladder surgery - 05/2023, Hepatitis B , Blood controlled w/meds (avg is 135/80). [place] language is Romansh. PT-OP-B Current Condition Start: 12/28/23 18:15 Freq: Status: Active Protocol: Document 12/31/23 11:16 LRN (Rec: 12/31/23 12:59 LRN [id number]) Current Condition History of Current Condition Onset Date 2 yrs ago Current Complaints Feels she needs to urinate and sometimes can't hold it. History of Current Condition Not able to maintain continence and wears an adult diaper. Fit for pessary 2 wks ago, and has not felt urinary leakage with cough, but has leakage with urgency ( sometimes not able to maiintain urianry continence for any length of time when coming to stand). Prior to loss of control she did have some urinary leakage. Prior Treatments and Tests None Developmental History Developmental History G5, P5 Treatment Goals Patient/Caregiver Goals Pt goals: Control urinary leakage with transfers and urge. Continenece with an urge. HEP. Personal Factors Other Personal Factors That May Effect [place] language is Romansh, Therapy/Recovery Osteoporosis, Type II Diabetes . PT-OP-C Subjective Start: 12/28/23 18:15 Freq: Status: Active Protocol: Document 01/14/24 09:05 LRN (Rec: 01/14/24 09:51 LRN [id number]) OP-PT Subjective Patient Comments Patient Comments Did Bladder Diary. Has been going to bathroom on time and hasn't been leakaing and hips are sore. No leakage this past week. PT-OP-I Pelvic Floor Start: 12/28/23 18:15 Freq: Status: Active Protocol: Document 12/31/23 11:16 LRN (Rec: 12/31/23 12:59 LRN [id number]) Pelvic Floor Assessment Urine Urinary Symptoms Urge Sensation,Dribbling After Urination,Falling Out Feeling /Heavy Leakage Size Large Leakage Cause Cough,Exercise,Lifting,Sneeze, Urge Other Leakage Causes With Pessary pt is continent except with a strong urge, and sit<>stand. Leaks Per Day 5 Voiding Frequency 3 Nocturia 4 Pads Used In 24 Hours 5 Urine Pad Type Depends Bowel Bowel Movement Frequency 1 [place] Stool Chart Type 1-7 4 Pelvic Clock Pelvic Clock Other External PF tender at 3 O' Clock Perineal Descent Resting Absent Bearing Present Contraction Ability Voluntary Contraction Weak Voluntary Relaxation Moderate Manual Muscle Testing Left 2 Manual Muscle Testing Right 1 Manual Muscle Testing Anterior 0 Manual Muscle Testing Posterior 2 Muscle Endurance (Seconds) 1 Number of Quick Contractions In 10 4 Seconds PT-OP-J Posture/Palpation/Skin Start: 12/28/23 18:15 Freq: Status: Active Protocol: Document 12/31/23 11:16 LRN (Rec: 12/31/23 12:59 LRN [id number]) Posture Evaluation Position Standing L-Spine Posture Increased Lordosis Shoulder Posture (L) Elevated Scapula Posture (R) Rotated Down Arm Posture (L) Internally Rotated,(R) Internally Rotated Pelvis Posture Anteriorly Tilted,(R) PSIS Posterior Knee Posture (L) Genu Varus,(R) Genu Varus Comments Posture Comments Straightened upper back. PT-OP-K Range of Motion Start: 12/28/23 18:15 Freq: Status: Active Protocol: Document 12/31/23 11:16 LRN (Rec: 12/31/23 12:59 LRN [id number]) Lumbar Spine Range of Motion Lumbar Spine Active Degrees Testing Position Standing Flexion 83 Extension 10 Rotation Left 10 Rotation Right 10 Lateral Flexion Left 10 ROM Limitations Soft Tissue Tightness Hip Goniometric Range of Motion Hip Right Passive Testing Position Supine Abduction 30 Internal Rotation 25 External Rotation 65 Left Passive Testing Position Supine Abduction 20 Internal Rotation 20 External Rotation 50 PT-OP-M Strength Start: 12/28/23 18:15 Freq: Status: Active Protocol: Document 12/31/23 11:16 LRN (Rec: 12/31/23 12:59 LRN [id number]) Trunk Strength Trunk Manual Muscle Testing Core Stabilization Pt is not able to maintain core stability with MMT of LE' s. Hip Strength Hip Manual Muscle Testing Right Flexion (L2) 4+ Good+ Extension (S1) 4+ Good+ Abduction 3+ Fair+ Internal Rotation 4+ Good+ Comments Strength is 5/5 except as indicated above. Left Extension (S1) 3 Fair Internal Rotation 3+ Fair+ Comments Strength is 5/5 except as indicated above. PT-OP-Q Treatments Start: 12/28/23 18:15 Freq: Status: Active Protocol: Document 01/14/24 09:05 LRN (Rec: 01/14/24 09:51 LRN [id number]) Therapeutic Exercises Sitting Exercises Piriformis stretch Sitting Exercise Name Piriformis stretch (2x L, 1x R ) Side bilateral Comments Cued to breath with PF stretch on inhale Fig 4 stretch Sitting Exercise Name L>R Side bilateral Comments Cued to breath with PF stretch on inhale Manual Therapy Treatment Soft Tissue Mobilization Sacral Balance Body Location Sacrum Comments L sacral sulcus infer glide and PA; Sacral shear to R; PA R YA & Ischial tub. Self-Care/Home Management Treatment Education Other Education Discussed & Reviewed Bladder dairy and discussed fluid intake (AM/PM), voiding frequency and recommended if she didn't want to void as frequent she can wait until the 2-3 hrs before voiding. Discussed use of meds would make it normal to void with the med. Discussed wearing underwear better for PF tissued than Depends. Discussed gental and vulvar self care. Discussion of different pads and usage (urine vs menstrual) . Activities Self-Care/Home Management Activities Issued handouts for genital and vulvar care. Issued Handout for bladder diary. Pt to do again with voiding times noted. PT-OP-T Assessment and Plan Start: 12/28/23 18:15 Freq: Status: Active Protocol: Document 01/14/24 09:05 LRN (Rec: 01/14/24 09:51 LRN [id number]) Physical Therapy Assessment Goals Three Impairment Urge incontinence. Impairment Continenece with an urge. Short Term Goal (STG) Pt will be educated in urge deference techinque. 01/07/24: Issued & reviewed handout for urge deference training. STG Duration 6 wks-02/18/24 (01/07/24: MET GOAL) Mcfp Goal (LTG) Pt will be able to make it to the bathroom without urinary leakage. 01/14/24: Pt reports no leakage this week. LTG Duration 12 wks-03/24/24 (01/14/24: MET GOAL) Two Impairment Stress Urinary Incontinence. Impairment Urinary leakage with transfers and urge. Short Term Goal (STG) Pt will be educated in core pressure management with transfers, body mechanics for daily ADLS (gardening). 12/31/23: Pt educated in core pressure management with sup< >sit<>stand transfers. 01/07/24: Training for transfers w/breath for core pressure management (sit<>sup) . STG Duration 6 wks-02/18/24 progressed 05/24 Mcfp Goal (LTG) Pt will be able to maintain urinary continence with transfers rolling in bed or sit<>stand transfers. LTG Duration 12 wks-03/24/24 One Impairment Pt lacks appropriate self care HEP. Short Term Goal (STG) Pt education in PF contractions in isolation substitute muscles, and educated in proper vulvar/ genital care. STG Duration 6 wks-02/18/24 [employer] Goal (LTG) Pt will be independent with a self care HEP of PF/core strengthening and hip ROM exercises. 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 Today pt reports no longer urinary leaking, as attested with bladder diary review. Per bladder diary review, times between voids are 2-3 hrs, except hourly w/meds. Pt voids before each meal and before meds regardless if she has an urge; therefore pt may want bladder retraining to minimize times between voids, no nighttime voiding, and no need for BM voiding education as pt voids daily without pushing. Physical Therapy Plan Frequency and Duration Frequency of Treatment 1x/Week Duration of treatment (weeks) 12 Plan of Care Start Date 12/31/23 Plan of Care End Date 03/24/24 Next Visit Focus/Plan Next Note Type Treatment Note Next Visit Plan Next: Assess PF strength if pt doesn't have pessary. Review issued HEP and urge deference technique. Review 2nd bladder diary for voiding times and times between voids and discuss if pt wants training to reduce # of voids. Recheck & complete Sacral balance. Education: PF contractions in isolation of substitute muscles, coordination of proper breaths with ADLs, transfers, body mechanics and exercise. Manual: Sacral balancing. Hip stretches L>R (Peng IR, ER, AB), general hip strengthening. PF strengthening (anterior > posterior) in isolation of substitute muscles.
--- NOTE | 2024-02-01 15:45 | PT.OTN ---
Current Diagnoses Muscle weakness (generalized) (02/01/24) Mixed incontinence (02/01/24) Physical Therapy Treatment Note PT-OP-A Visit Information Start: 12/28/23 18:15 Freq: Status: Active Protocol: Document 02/01/24 14:39 LRN (Rec: 02/01/24 15:44 LRN [id number]) Out-Patient Physical Therapy Visit Information Visit Information Visit Type Treatment Note Visit Start Time 14:39 Visit Stop Time 15:23 Visit Number 4 Evaluation Information Evaluation Date 12/31/23 Precautions Precautions Pessary, Type II Diabetes, Osteoporosis, Gall bladder surgery - 05/2023, Hepatitis B , Blood controlled w/meds (avg is 135/80). [place] language is [place]aguayan. PT-OP-B Current Condition Start: 12/28/23 18:15 Freq: Status: Active Protocol: Document 12/31/23 11:16 LRN (Rec: 12/31/23 12:59 LRN [id number]) Current Condition History of Current Condition Onset Date 2 yrs ago Current Complaints Feels she needs to urinate and sometimes can't hold it. History of Current Condition Not able to maintain continence and wears an adult diaper. Fit for pessary 2 wks ago, and has not felt urinary leakage with cough, but has leakage with urgency ( sometimes not able to maiintain urianry continence for any length of time when coming to stand). Prior to loss of control she did have some urinary leakage. Prior Treatments and Tests None Developmental History Developmental History G5, P5 Treatment Goals Patient/Caregiver Goals Pt goals: Control urinary leakage with transfers and urge. Continenece with an urge. HEP. Personal Factors Other Personal Factors That May Effect [place] language is [place]ayan, Therapy/Recovery Osteoporosis, Type II Diabetes . PT-OP-C Subjective Start: 12/28/23 18:15 Freq: Status: Active Protocol: Document 02/01/24 14:39 LRN (Rec: 02/01/24 15:44 LRN [id number]) OP-PT Subjective Patient Comments Patient Comments States she is no longer wearing diapers, but is wearing a small pad. States 1x only woke 1x to urinate. PT-OP-I Pelvic Floor Start: 12/28/23 18:15 Freq: Status: Active Protocol: Document 12/31/23 11:16 LRN (Rec: 12/31/23 12:59 LRN [id number]) Pelvic Floor Assessment Urine Urinary Symptoms Urge Sensation,Dribbling After Urination,Falling Out Feeling /Heavy Leakage Size Large Leakage Cause Cough,Exercise,Lifting,Sneeze, Urge Other Leakage Causes With Pessary pt is continent except with a strong urge, and sit<>stand. Leaks Per Day 5 Voiding Frequency 3 Nocturia 4 Pads Used In 24 Hours 5 Urine Pad Type Depends Bowel Bowel Movement Frequency 1 [place] Stool Chart Type 1-7 4 Pelvic Clock Pelvic Clock Other External PF tender at 3 O' Clock Perineal Descent Resting Absent Bearing Present Contraction Ability Voluntary Contraction Weak Voluntary Relaxation Moderate Manual Muscle Testing Left 2 Manual Muscle Testing Right 1 Manual Muscle Testing Anterior 0 Manual Muscle Testing Posterior 2 Muscle Endurance (Seconds) 1 Number of Quick Contractions In 10 4 Seconds PT-OP-J Posture/Palpation/Skin Start: 12/28/23 18:15 Freq: Status: Active Protocol: Document 12/31/23 11:16 LRN (Rec: 12/31/23 12:59 LRN [id number]) Posture Evaluation Position Standing L-Spine Posture Increased Lordosis Shoulder Posture (L) Elevated Scapula Posture (R) Rotated Down Arm Posture (L) Internally Rotated,(R) Internally Rotated Pelvis Posture Anteriorly Tilted,(R) PSIS Posterior Knee Posture (L) Genu Varus,(R) Genu Varus Comments Posture Comments Straightened upper back. PT-OP-K Range of Motion Start: 12/28/23 18:15 Freq: Status: Active Protocol: Document 12/31/23 11:16 LRN (Rec: 12/31/23 12:59 LRN [id number]) Lumbar Spine Range of Motion Lumbar Spine Active Degrees Testing Position Standing Flexion 83 Extension 10 Rotation Left 10 Rotation Right 10 Lateral Flexion Left 10 ROM Limitations Soft Tissue Tightness Hip Goniometric Range of Motion Hip Right Passive Testing Position Supine Abduction 30 Internal Rotation 25 External Rotation 65 Left Passive Testing Position Supine Abduction 20 Internal Rotation 20 External Rotation 50 PT-OP-M Strength Start: 12/28/23 18:15 Freq: Status: Active Protocol: Document 12/31/23 11:16 LRN (Rec: 12/31/23 12:59 LRN [id number]) Trunk Strength Trunk Manual Muscle Testing Core Stabilization Pt is not able to maintain core stability with MMT of LE' s. Hip Strength Hip Manual Muscle Testing Right Flexion (L2) 4+ Good+ Extension (S1) 4+ Good+ Abduction 3+ Fair+ Internal Rotation 4+ Good+ Comments Strength is 5/5 except as indicated above. Left Extension (S1) 3 Fair Internal Rotation 3+ Fair+ Comments Strength is 5/5 except as indicated above. PT-OP-Q Treatments Start: 12/28/23 18:15 Freq: Status: Active Protocol: Document 02/01/24 14:39 LRN (Rec: 02/01/24 15:44 LRN [id number]) Therapeutic Exercises Supine Exercises Kegel/Resisted hip AB-ER Supine Exercise Name Kegel/Resisted hip BKFO Reps/Minutes 10 SH/10 sec rest (SR) x 6 reps Kegel/Ball squeeze Supine Exercise Name Kegle/Ball Squeeze Reps/Minutes 10 SH/10 sec rest (SR) x 3 reps Sitting Exercises Piriformis stretch Sitting Exercise Name Piriformis stretch (2x L, 1x R ) Side bilateral Reps/Minutes 5' Comments Cued to breath with PF stretch on inhale Fig 4 stretch Sitting Exercise Name L>R Side bilateral Reps/Minutes 4' Comments Cued to breath with PF stretch on inhale Self-Care/Home Management Treatment Education Other Education Discussed & Reviewed Bladder dairy. Discussed & reviewed basic body mechanics and ADLs. Activities Self-Care/Home Management Activities Issued & reviewed HEP: Kegel/ [place] hip AD & Kegel/resisted hip AB (TBand) strengthening. Issued Lev 2 TBand. PT-OP-T Assessment and Plan Start: 12/28/23 18:15 Freq: Status: Active Protocol: Document 02/01/24 14:39 LRN (Rec: 02/01/24 15:44 LRN [id number]) Physical Therapy Assessment Goals Three Impairment Urge incontinence. Impairment Continenece with an urge. Short Term Goal (STG) Pt will be educated in urge deference techinque. 01/07/24: Issued & reviewed handout for urge deference training. STG Duration 6 wks-02/18/24 (01/07/24: MET GOAL) Paraplanner Goal (LTG) Pt will be able to make it to the bathroom without urinary leakage. 01/14/24: Pt reports no leakage this week. LTG Duration 12 wks-03/24/24 (01/14/24: MET GOAL) Two Impairment Stress Urinary Incontinence. Impairment Urinary leakage with transfers and urge. Short Term Goal (STG) Pt will be educated in core pressure management with transfers, body mechanics for daily ADLS (gardening). 12/31/23: Pt educated in core pressure management with sup< >sit<>stand transfers. 01/07/24: Training for transfers w/breath for core pressure management (sit<>sup) . 02/01/24: Pt educated in proper general body mechanics and daily ADLs. Discussed bending for activities ( gardening). STG Duration 6 wks-02/18/24 (02/01/24: MET GOAL) Retirement Goal (LTG) Pt will be able to maintain urinary continence with transfers rolling in bed or sit<>stand transfers. 02/01/24: Not leaking moving in bed and with sit<>stand transfers. LTG Duration 12 wks-03/24/24 (02/01/24: MET GOAL) One Impairment Pt lacks appropriate self care HEP. Short Term Goal (STG) Pt education in PF contractions in isolation substitute muscles, and educated in proper vulvar/ genital care. 02/01/24: Reviewed for questions of proper vulvar/ genital care per handout issued last session. STG Duration 6 wks-02/18/24 progressed 12/22 (need educ isolated PF > <'s) Paraplanner Goal (LTG) Pt will be independent with a self care HEP of PF/core strengthening and hip ROM exercises. 01/07/24: HEP: Piriformis ( KTC ankle over knee, knee to opp shdr, and Fig 4 stretch) 02/01/24: HEP I/S: Kegel/ Ball Squeeze & Kegel/Hip AB. 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 Today pt reports no urinary leakage, no longer wearing a diaper, but wears a thin pad; therefore urinary delay technique is working to improve incontinence. She shows poor recall of core pressure management. Bladder diary review indicates good voiding frequency, every 2-3 hrs, except hourly after taking diabetes and blood pressure meds (as expected). The pt could benefit from placement on hip/core strengthening before DC to HEP . Physical Therapy Plan Frequency and Duration Frequency of Treatment 1x/Week Duration of treatment (weeks) 12 Plan of Care Start Date 12/31/23 Plan of Care End Date 03/24/24 Next Visit Focus/Plan Next Note Type Treatment Note Next Visit Plan DC in 1-2 visits after placing on HEP if continence remains. Next: Assess PF strength if pt doesn't have pessary. Education: PF contractions in isolation of substitute muscles. General hip/core strengthening. Remeasure hip mobility after Hip stretches L>R (Peng IR, ER, AB), PF strengthening (anterior > posterior) in isolation of substitute muscles (?Kegel w/ bridge & w/ball squeeze). (If needed) manual Sacral balancing - recheck & complete Sacral balance.
--- NOTE | 2024-02-08 15:37 | PT.OTN ---
Current Diagnoses Muscle weakness (generalized) (02/08/24) Mixed incontinence (02/08/24) Physical Therapy Treatment Note PT-OP-A Visit Information Start: 12/28/23 18:15 Freq: Status: Active Protocol: Document 02/08/24 09:50 LRN (Rec: 02/08/24 10:35 LRN [id number]) Out-Patient Physical Therapy Visit Information Visit Information Visit Type Treatment Note Visit Start Time 09:50 Visit Stop Time 10:30 Visit Number 5 Evaluation Information Evaluation Date 12/31/23 Precautions Precautions Pessary, Type II Diabetes, Osteoporosis, Gall bladder surgery - 05/2023, Hepatitis B , Blood controlled w/meds (avg is 135/80). [place] language is Burmese. PT-OP-B Current Condition Start: 12/28/23 18:15 Freq: Status: Active Protocol: Document 12/31/23 11:16 LRN (Rec: 12/31/23 12:59 LRN [id number]) Current Condition History of Current Condition Onset Date 2 yrs ago Current Complaints Feels she needs to urinate and sometimes can't hold it. History of Current Condition Not able to maintain continence and wears an adult diaper. Fit for pessary 2 wks ago, and has not felt urinary leakage with cough, but has leakage with urgency ( sometimes not able to maiintain urianry continence for any length of time when coming to stand). Prior to loss of control she did have some urinary leakage. Prior Treatments and Tests None Developmental History Developmental History G5, P5 Treatment Goals Patient/Caregiver Goals Pt goals: Control urinary leakage with transfers and urge. Continenece with an urge. HEP. Personal Factors Other Personal Factors That May Effect [place] language is Burmese, Therapy/Recovery Osteoporosis, Type II Diabetes . PT-OP-C Subjective Start: 12/28/23 18:15 Freq: Status: Active Protocol: Document 02/08/24 09:50 LRN (Rec: 02/08/24 10:35 LRN [id number]) OP-PT Subjective Patient Comments Patient Comments STates there is no change with her bladder diary. PT-OP-I Pelvic Floor Start: 12/28/23 18:15 Freq: Status: Active Protocol: Document 12/31/23 11:16 LRN (Rec: 12/31/23 12:59 LRN [id number]) Pelvic Floor Assessment Urine Urinary Symptoms Urge Sensation,Dribbling After Urination,Falling Out Feeling /Heavy Leakage Size Large Leakage Cause Cough,Exercise,Lifting,Sneeze, Urge Other Leakage Causes With Pessary pt is continent except with a strong urge, and sit<>stand. Leaks Per Day 5 Voiding Frequency 3 Nocturia 4 Pads Used In 24 Hours 5 Urine Pad Type Depends Bowel Bowel Movement Frequency 1 [place] Stool Chart Type 1-7 4 Pelvic Clock Pelvic Clock Other External PF tender at 3 O' Clock Perineal Descent Resting Absent Bearing Present Contraction Ability Voluntary Contraction Weak Voluntary Relaxation Moderate Manual Muscle Testing Left 2 Manual Muscle Testing Right 1 Manual Muscle Testing Anterior 0 Manual Muscle Testing Posterior 2 Muscle Endurance (Seconds) 1 Number of Quick Contractions In 10 4 Seconds PT-OP-J Posture/Palpation/Skin Start: 12/28/23 18:15 Freq: Status: Active Protocol: Document 12/31/23 11:16 LRN (Rec: 12/31/23 12:59 LRN [id number]) Posture Evaluation Position Standing L-Spine Posture Increased Lordosis Shoulder Posture (L) Elevated Scapula Posture (R) Rotated Down Arm Posture (L) Internally Rotated,(R) Internally Rotated Pelvis Posture Anteriorly Tilted,(R) PSIS Posterior Knee Posture (L) Genu Varus,(R) Genu Varus Comments Posture Comments Straightened upper back. PT-OP-K Range of Motion Start: 12/28/23 18:15 Freq: Status: Active Protocol: Document 12/31/23 11:16 LRN (Rec: 12/31/23 12:59 LRN [id number]) Lumbar Spine Range of Motion Lumbar Spine Active Degrees Testing Position Standing Flexion 83 Extension 10 Rotation Left 10 Rotation Right 10 Lateral Flexion Left 10 ROM Limitations Soft Tissue Tightness Hip Goniometric Range of Motion Hip Right Passive Testing Position Supine Abduction 30 Internal Rotation 25 External Rotation 65 Left Passive Testing Position Supine Abduction 20 Internal Rotation 20 External Rotation 50 PT-OP-M Strength Start: 12/28/23 18:15 Freq: Status: Active Protocol: Document 12/31/23 11:16 LRN (Rec: 12/31/23 12:59 LRN [id number]) Trunk Strength Trunk Manual Muscle Testing Core Stabilization Pt is not able to maintain core stability with MMT of LE' s. Hip Strength Hip Manual Muscle Testing Right Flexion (L2) 4+ Good+ Extension (S1) 4+ Good+ Abduction 3+ Fair+ Internal Rotation 4+ Good+ Comments Strength is 5/5 except as indicated above. Left Extension (S1) 3 Fair Internal Rotation 3+ Fair+ Comments Strength is 5/5 except as indicated above. PT-OP-Q Treatments Start: 12/28/23 18:15 Freq: Status: Active Protocol: Document 02/08/24 09:50 LRN (Rec: 02/08/24 10:35 LRN [id number]) Therapeutic Exercises Supine Exercises SLR Side right Reps/Minutes 10x Comments Cued to tighten TA and breathe . Kegel/Resisted hip AB-ER Supine Exercise Name Kegel/Resisted hip BKFO Reps/Minutes 10 SH/10 sec rest (SR) x 10 reps Comments Encourged pt to do 2x/day 10 reps vs 5 reps. Kegel/Ball squeeze Supine Exercise Name Kegle/Ball Squeeze Reps/Minutes 5 SH/10 sec rest (SR) x 5 reps Fig 4 stretch Supine Exercise Name Hip ER stretch-Fig 4 Side bilateral Reps/Minutes 6' (2x L, 1x R) Comments L hip tighter. Cued to breath with PF stretch on inhale Piriformis stretch Supine Exercise Name KTC-ankle over knee ( Piriformis stretch) Side bilateral Equipment Used towel Reps/Minutes 6' (2x L, 1x R) Comments L hip more tight. Cued to breath with PF stretch on inhale Prone Exercises Hip Ext Side left Reps/Minutes 10x Comments Cued to tighten TA and breathe . Sidelying Exercises Hip AB Side right Reps/Minutes 10x Comments Cued to tighten TA and breathe . Reverse Clamshell Side left Reps/Minutes 10x Comments Cued to tighten TA and breathe . Clamshell Side right Reps/Minutes 10x Comments Cued to tighten TA and breathe . Self-Care/Home Management Treatment Education Patient Education Home Exercise Program Activities Self-Care/Home Management Activities Issued & reviewed strengthening hip HEP: Clamshell, reverse clamshell, Hip AB, ext & SLR. PT-OP-T Assessment and Plan Start: 12/28/23 18:15 Freq: Status: Active Protocol: Document 02/08/24 09:50 LRN (Rec: 02/08/24 10:35 LRN [id number]) Physical Therapy Assessment Goals Three Impairment Urge incontinence. Impairment Continenece with an urge. Short Term Goal (STG) Pt will be educated in urge deference techinque. 01/07/24: Issued & reviewed handout for urge deference training. STG Duration 6 wks-02/18/24 (01/07/24: MET GOAL) Nursing Home Goal (LTG) Pt will be able to make it to the bathroom without urinary leakage. 01/14/24: Pt reports no leakage this week. LTG Duration 12 wks-03/24/24 (01/14/24: MET GOAL) Two Impairment Stress Urinary Incontinence. Impairment Urinary leakage with transfers and urge. Short Term Goal (STG) Pt will be educated in core pressure management with transfers, body mechanics for daily ADLS (gardening). 12/31/23: Pt educated in core pressure management with sup< >sit<>stand transfers. 01/07/24: Training for transfers w/breath for core pressure management (sit<>sup) . 02/01/24: Pt educated in proper general body mechanics and daily ADLs. Discussed bending for activities ( gardening). STG Duration 6 wks-02/18/24 (02/01/24: MET GOAL) Asian Studies Professor Goal (LTG) Pt will be able to maintain urinary continence with transfers rolling in bed or sit<>stand transfers. 02/01/24: Not leaking moving in bed and with sit<>stand transfers. LTG Duration 12 wks-03/24/24 (02/01/24: MET GOAL) One Impairment Pt lacks appropriate self care HEP. Short Term Goal (STG) Pt education in PF contractions in isolation substitute muscles, and educated in proper vulvar/ genital care. 02/01/24: Reviewed for questions of proper vulvar/ genital care per handout issued last session. STG Duration 6 wks-02/18/24 progressed 12/22 (need educ isolated PF > <'s) Asian Studies Professor Goal (LTG) Pt will be independent with a self care HEP of PF/core strengthening and hip ROM exercises. 01/07/24: HEP: Piriformis ( KTC ankle over knee, knee to opp shdr, and Fig 4 stretch) 02/01/24: HEP I/S: Kegel/ Ball Squeeze & Kegel/Hip AB. 02/08/24: HEP: Hip strengthening ex's (Clamshell, reverse clamshell, Hip AB, ext & SLR.). 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 Today pt reporting continence is the same, good and not leaking urine. She demonstrates ability to do an isolated Kegel when she uses her hands for self feedback. Good tolerance to hip strengthening exercises and daughter present and watching ex's to help pt at home. Pt not wanting to be rechecked in PF; therefore will not be checked. Physical Therapy Plan Frequency and Duration Frequency of Treatment 1x/Week Duration of treatment (weeks) 12 Plan of Care Start Date 12/31/23 Plan of Care End Date 03/24/24 Next Visit Focus/Plan Next Note Type Discharge Summary Next Visit Plan DC next visits after review of HEP. Issue abdominal tightening ex. Next: Review General hip/ core strengthening. Remeasure hip mobility after Hip stretches L>R (Peng IR, ER, AB) and score PUF.
--- NOTE | 2024-02-15 15:39 | PT.OTN ---
Addendum entered and electronically signed by Marlene Bajwa, PT 02/15/24 15:40: Hip PROM taken in supine: Bilaterally: Hip IR is 28 deg's, AB is 40 deg's; ER is 65 deg's R, 60 deg's L Original Note: Current Diagnoses Muscle weakness (generalized) (02/15/24) Mixed incontinence (02/15/24) Physical Therapy Treatment Note PT-OP-A Visit Information Start: 12/28/23 18:15 Freq: Status: Active Protocol: Document 02/15/24 14:34 LRN (Rec: 02/15/24 15:34 LRN [id number]) Out-Patient Physical Therapy Visit Information Visit Information Visit Type Treatment Note Visit Start Time 14:34 Visit Stop Time 15:17 Visit Number 6 Evaluation Information Evaluation Date 12/31/23 Precautions Precautions Pessary, Type II Diabetes, Osteoporosis, Gall bladder surgery - 05/2023, Hepatitis B , Blood controlled w/meds (avg is 135/80). [place] language is [place]ian. PT-OP-B Current Condition Start: 12/28/23 18:15 Freq: Status: Active Protocol: Document 12/31/23 11:16 LRN (Rec: 12/31/23 12:59 LRN [id number]) Current Condition History of Current Condition Onset Date 2 yrs ago Current Complaints Feels she needs to urinate and sometimes can't hold it. History of Current Condition Not able to maintain continence and wears an adult diaper. Fit for pessary 2 wks ago, and has not felt urinary leakage with cough, but has leakage with urgency ( sometimes not able to maiintain urianry continence for any length of time when coming to stand). Prior to loss of control she did have some urinary leakage. Prior Treatments and Tests None Developmental History Developmental History G5, P5 Treatment Goals Patient/Caregiver Goals Pt goals: Control urinary leakage with transfers and urge. Continenece with an urge. HEP. Personal Factors Other Personal Factors That May Effect [place] language is [place]ian, Therapy/Recovery Osteoporosis, Type II Diabetes . PT-OP-C Subjective Start: 12/28/23 18:15 Freq: Status: Active Protocol: Document 02/15/24 14:34 LRN (Rec: 02/15/24 15:34 LRN [id number]) OP-PT Subjective Patient Comments Patient Comments States she is doing very well. No urinary leakage with an urge or transfers, states she is ready for discharge today. Patient Questionnaires Pelvic Pain and Urgency/Frequency Patient Symptom Scale Pelvic Pain Score 2 PT-OP-I Pelvic Floor Start: 12/28/23 18:15 Freq: Status: Active Protocol: Document 12/31/23 11:16 LRN (Rec: 12/31/23 12:59 LRN [id number]) Pelvic Floor Assessment Urine Urinary Symptoms Urge Sensation,Dribbling After Urination,Falling Out Feeling /Heavy Leakage Size Large Leakage Cause Cough,Exercise,Lifting,Sneeze, Urge Other Leakage Causes With Pessary pt is continent except with a strong urge, and sit<>stand. Leaks Per Day 5 Voiding Frequency 3 Nocturia 4 Pads Used In 24 Hours 5 Urine Pad Type Depends Bowel Bowel Movement Frequency 1 Pablo Stool Chart Type 1-7 4 Pelvic Clock Pelvic Clock Other External PF tender at 3 O' Clock Perineal Descent Resting Absent Bearing Present Contraction Ability Voluntary Contraction Weak Voluntary Relaxation Moderate Manual Muscle Testing Left 2 Manual Muscle Testing Right 1 Manual Muscle Testing Anterior 0 Manual Muscle Testing Posterior 2 Muscle Endurance (Seconds) 1 Number of Quick Contractions In 10 4 Seconds PT-OP-J Posture/Palpation/Skin Start: 12/28/23 18:15 Freq: Status: Active Protocol: Document 12/31/23 11:16 LRN (Rec: 12/31/23 12:59 LRN [id number]) Posture Evaluation Position Standing L-Spine Posture Increased Lordosis Shoulder Posture (L) Elevated Scapula Posture (R) Rotated Down Arm Posture (L) Internally Rotated,(R) Internally Rotated Pelvis Posture Anteriorly Tilted,(R) PSIS Posterior Knee Posture (L) Genu Varus,(R) Genu Varus Comments Posture Comments Straightened upper back. PT-OP-K Range of Motion Start: 12/28/23 18:15 Freq: Status: Active Protocol: Document 12/31/23 11:16 LRN (Rec: 12/31/23 12:59 LRN [id number]) Lumbar Spine Range of Motion Lumbar Spine Active Degrees Testing Position Standing Flexion 83 Extension 10 Rotation Left 10 Rotation Right 10 Lateral Flexion Left 10 ROM Limitations Soft Tissue Tightness Hip Goniometric Range of Motion Hip Right Passive Testing Position Supine Abduction 30 Internal Rotation 25 External Rotation 65 Left Passive Testing Position Supine Abduction 20 Internal Rotation 20 External Rotation 50 PT-OP-M Strength Start: 12/28/23 18:15 Freq: Status: Active Protocol: Document 12/31/23 11:16 LRN (Rec: 12/31/23 12:59 LRN [id number]) Trunk Strength Trunk Manual Muscle Testing Core Stabilization Pt is not able to maintain core stability with MMT of LE' s. Hip Strength Hip Manual Muscle Testing Right Flexion (L2) 4+ Good+ Extension (S1) 4+ Good+ Abduction 3+ Fair+ Internal Rotation 4+ Good+ Comments Strength is 5/5 except as indicated above. Left Extension (S1) 3 Fair Internal Rotation 3+ Fair+ Comments Strength is 5/5 except as indicated above. PT-OP-Q Treatments Start: 12/28/23 18:15 Freq: Status: Active Protocol: Document 02/15/24 14:34 LRN (Rec: 02/15/24 15:34 LRN [id number]) Therapeutic Exercises Supine Exercises Isolated PF contractions Reps/Minutes 3x Comments Pt able to perform an isolated PF contraction after pt aware of what to do. SLR Side bilateral Reps/Minutes 10x Comments Cued to tighten TA and breathe . Fig 4 stretch Supine Exercise Name Hip ER stretch-Fig 4 Side bilateral Reps/Minutes 6' (2x L, 1x R) Comments L hip tighter. Cued to breath with PF stretch on inhale Piriformis stretch Supine Exercise Name KTC-ankle over knee ( Piriformis stretch) Side bilateral Equipment Used towel Reps/Minutes 6' (2x L, 1x R) Comments L hip more tight. Cued to breath with PF stretch on inhale Prone Exercises Hip Ext Side bilateral Reps/Minutes 10x Comments Cued to tighten TA and breathe . Sidelying Exercises Hip AB Side bilateral Reps/Minutes 10x Comments Cued to tighten TA and breathe . Reverse Clamshell Side bilateral Reps/Minutes 10x Comments Cued to tighten TA and breathe . Clamshell Side bilateral Reps/Minutes 10x Comments Cued to tighten TA and breathe . Self-Care/Home Management Treatment Activities Self-Care/Home Management Activities Issued & reviewed HEP: TA tightening in supine and sidelie as reminder to perform before hip strengthening exercises. PT-OP-T Assessment and Plan Start: 12/28/23 18:15 Freq: Status: Active Protocol: Document 02/15/24 14:34 LRN (Rec: 02/15/24 15:34 LRN [id number]) Physical Therapy Assessment Goals Three Impairment Urge incontinence. Impairment Continenece with an urge. Short Term Goal (STG) Pt will be educated in urge deference techinque. 01/07/24: Issued & reviewed handout for urge deference training. STG Duration 6 wks-02/18/24 (01/07/24: MET GOAL) Boiler Coverer Helper Goal (LTG) Pt will be able to make it to the bathroom without urinary leakage. 01/14/24: Pt reports no leakage this week. LTG Duration 12 wks-03/24/24 (01/14/24: MET GOAL) Two Impairment Stress Urinary Incontinence. Impairment Urinary leakage with transfers and urge. Short Term Goal (STG) Pt will be educated in core pressure management with transfers, body mechanics for daily ADLS (gardening). 12/31/23: Pt educated in core pressure management with sup< >sit<>stand transfers. 01/07/24: Training for transfers w/breath for core pressure management (sit<>sup) . 02/01/24: Pt educated in proper general body mechanics and daily ADLs. Discussed bending for activities ( gardening). STG Duration 6 wks-02/18/24 (02/01/24: MET GOAL) Shelter Goal (LTG) Pt will be able to maintain urinary continence with transfers rolling in bed or sit<>stand transfers. 02/01/24: Not leaking moving in bed and with sit<>stand transfers. LTG Duration 12 wks-03/24/24 (02/01/24: MET GOAL) One Impairment Pt lacks appropriate self care HEP. Short Term Goal (STG) Pt education in PF contractions in isolation substitute muscles, and educated in proper vulvar/ genital care. 02/01/24: Reviewed for questions of proper vulvar/ genital care per handout issued last session. 02/15/24: Pt educated in PF contractions in isolation of substitute muscles. STG Duration 6 wks-02/18/24 (02/15/24: MET GOAL) Shelter Goal (LTG) Pt will be independent with a self care HEP of PF/core strengthening and hip ROM exercises. 01/07/24: HEP: Piriformis ( KTC ankle over knee, knee to opp shdr, and Fig 4 stretch) 02/01/24: HEP I/S: Kegel/ Ball Squeeze & Kegel/Hip AB. 02/08/24: HEP: Hip strengthening ex's (Clamshell, reverse clamshell, Hip AB, ext & SLR.). 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 Pt showed good understanding of previously given HEP, ability to perform an isolated PF contraction, and understands keeping TA tight with transitions and as exercise. Physical Therapy Plan Discharge Physical Therapy Discharge Reasons Goals Met Discharge Comments Pt did very well with therapy, thank you for your referral.
== END 2024-02-19 10:56 | disposition home or self-care (01) ==
LOC: PHYS 14:30
PROVIDERS: Family Provider Nurse Practitioner; PCP Nurse Practitioner; Referring Provider Student in an Organized Health Care Education/Training Program; Visit Provider Student in an Organized Health Care Education/Training Program
DX: N39.46 Mixed incontinence (principal); M62.81 Muscle weakness (generalized)
CPT/HCPCS: 97110; 97140; 97162; 97535

== ENCOUNTER → 2024-07-01 08:29 | Outpatient (CLI) | payer MEDICARE, MEDICAID, SELFPAY ==
[2023-11-05 12:04] VITALS: BMI 29.0
--- NOTE | 2024-07-01 08:30 | DI.MG.S_ITS ---
BILATERAL DIGITAL SCREENING MAMMOGRAM 3D/2D WITH CAD: 07/01/2024 CLINICAL: Routine screening. Comparison is made to exams dated: 06/29/2023 mammogram, 06/23/2022 mammogram, and 06/10/2021 mammogram - [facility]. There are scattered areas of fibroglandular density (category b / 25%-50% glandular tissue). Current study was also evaluated with a Computer Aided Detection (CAD) system. There are benign calcifications in both breasts. No significant masses, calcifications, or other findings are seen in either breast. There has been no significant interval change. IMPRESSION: BENIGN There is no mammographic evidence of malignancy. A 1 year screening mammogram is recommended. Based on the Tyrer Cuzick model (a risk assessment model) the patient's lifetime risk is 1.9% and her 10 year risk is 1.4%. According to the ACR, ACS, and NCCN guidelines, an annual breast MRI exam along with mammogram is recommended if the patient's lifetime risk is 20% or greater. This exam was interpreted at Station ID: [id number]. NOTE: For mammograms, a report in lay terms will be sent to the patient. Approximately 15% of breast malignancies will not be visualized mammographically. In the management of a palpable breast mass, a negative mammogram must not discourage biopsy of a clinically suspicious lesion. Electronically Signed By: Golden jones/saman:07/01/2024 11:40:37 letter sent: Normal Exam ACR BI-RADS Category 2: Benign
== END ==
PROVIDERS: Family Provider Nurse Practitioner; PCP Family Medicine; Referring Provider Family Medicine; Visit Provider Family Medicine
DX: Z12.31 Encounter for screening mammogram for malignant neoplasm of breast (principal)
CPT/HCPCS: 77063; 77067

== ENCOUNTER → 2024-07-22 08:25 | Outpatient (CLI) | payer MEDICARE, MEDICAID, SELFPAY ==
[2023-11-05 12:04] VITALS: BMI 29.0
[2024-07-22 10:17] LABS: Alanine Aminotransferase 27 IU/L (<35); Albumin 4.2 g/dL (3.5-5.0); Albumin Globulin Ratio 1.4 (1.0-2.8); Alkaline Phosphatase 47 U/L (38-126); Aspartate Aminotransferase 23 IU/L (14-36); BUN Creatinine Ratio 20.5 (6-22); Bilirubin Total 0.4 mg/dL (0.2-1.3); Blood Urea Nitrogen 17 mg/dL (7-17); Calcium 9.4 mg/dL (8.4-10.2); Carbon Dioxide 23 mmol/L (22-32); Chloride 104 mmol/L (98-107); Estimated Glomerular Filt Rate > 60 mL/min (>60); Globulin 2.9 g/dL (1.7-4.1); Glucose 164 mg/dL (80-110); HEMOLYSIS < 15 (0-50); Potassium 4.5 mmol/L (3.4-5.1); Sodium 136 mmol/L (137-145); Total Protein 7.1 g/dL (6.3-8.2)
[2024-07-22 10:22] LABS: Hemoglobin A1C% w Est Avg Glu 7.3 % (4.0-6.0)
== END ==
PROVIDERS: Family Provider Nurse Practitioner; PCP Family Medicine; Referring Provider Nurse Practitioner; Visit Provider Nurse Practitioner
DX: I10 Essential (primary) hypertension (principal); Z79.899 Other long term (current) drug therapy; R73.09 Other abnormal glucose
CPT/HCPCS: 36415; 80053; 83036

== ENCOUNTER → 2024-10-07 08:52 | Outpatient (CLI) | payer MEDICARE, MEDICAID, SELFPAY ==
[2023-11-05 12:04] VITALS: BMI 29.0
== END ==
PROVIDERS: Family Provider Nurse Practitioner; PCP Family Medicine; Referring Provider Family Medicine; Visit Provider Family Medicine
DX: E11.69 Type 2 diabetes mellitus with other specified complication (principal); E78.5 Hyperlipidemia, unspecified; E13.36 Other specified diabetes mellitus with diabetic cataract
CPT/HCPCS: 36415; 83036

== ENCOUNTER → 2024-10-16 11:16 | Outpatient (CLI) | payer MEDICARE, MEDICAID, SELFPAY ==
[2023-11-05 12:04] VITALS: BMI 29.0
--- NOTE | 2024-10-16 11:17 | DI.US.S_ITS ---
PROCEDURE: US ABDOMEN LIMITED INDICATIONS: concern for umbilical hernia TECHNIQUE: Real-time focused scanning was performed of the abdomen, with image documentation. COMPARISON: [facility], , US ABDOMEN LIMITED, 03/31/2023, 20:35. FINDINGS: Examination of right anterior abdominal wall just lateral to the umbilicus shows small anterior fascial defect measures 2.2 cm in with with small herniation sac containing fat only. The herniation sac is fully reducible. IMPRESSION: Small fully reducible right periumbilical hernia containing fat only as described above. Dictated by: Walker Cornejo M.D. on 10/16/2024 at 15:40 Approved by: Walker Cornejo M.D. on 10/16/2024 at 15:42
== END ==
PROVIDERS: Family Provider Nurse Practitioner; PCP Family Medicine; Referring Provider Family Medicine; Visit Provider Family Medicine
DX: K42.9 Umbilical hernia without obstruction or gangrene (principal); R19.8 Other specified symptoms and signs involving the digestive system and abdomen; R10.9 Unspecified abdominal pain
CPT/HCPCS: 76705

== ENCOUNTER → 2025-05-13 08:22 | Outpatient (CLI) | payer MEDICARE, MEDICAID, SELFPAY ==
[2023-11-05 12:04] VITALS: BMI 29.0
[2025-05-13 08:59] LABS: Hemoglobin A1C% w Est Avg Glu 7.3 % (4.0-6.0)
[2025-05-13 09:33] LABS: Cholesterol 120 mg/dL (140-199); HDL Cholesterol 48 mg/dL (40-60); Triglycerides 234 mg/dL (35-150)
== END ==
PROVIDERS: Family Provider Nurse Practitioner; PCP Family Medicine; Referring Provider Family Medicine; Visit Provider Family Medicine
DX: E11.69 Type 2 diabetes mellitus with other specified complication (principal); E78.5 Hyperlipidemia, unspecified
CPT/HCPCS: 36415; 80061; 83036

== ENCOUNTER → 2025-07-03 15:09 | Outpatient (CLI) | payer MEDICARE, SELFPAY ==
[2023-11-05 12:04] VITALS: BMI 29.0
--- NOTE | 2025-07-03 15:09 | DI.MG.S_ITS ---
MM screening mammo BI: 07/03/2025. BI-RADS: 1 CLINICAL: 74-year old female for bilateral screening mammogram. Tyrer-Cuzick lifetime risk of 1.9%. No personal or first-degree family history of breast cancer. PRIOR EXAMS 07/01/2024, 06/29/2023, 06/23/2022, 06/10/2021. MAMMOGRAPHY TECHNIQUE: 2D and 3D (tomosynthesis) digital mammographic views obtained, with additional images as needed for full coverage. Current study was also evaluated with a Computer Aided Detection (CAD) system. DENSITY B. There are scattered areas of fibroglandular density. MAMMOGRAPHY FINDINGS Bilateral: No suspicious mass, asymmetry, microcalcification, or other abnormality seen. IMPRESSION: * No evidence of malignancy. RECOMMENDATIONS Bilateral * Annual screening mammography. OVERALL ASSESSMENT CATEGORY BI-RADS-1: Negative. The [employer] recommends annual screening mammography beginning at age 40 for women with average risk of breast cancer. ELECTRONICALLY SIGNED: Cyndee Barlow M.D. on 07/03/2025 at 10:39:21 PM PT Interpreting Station ID: [id number]
== END ==
LOC: MAMMO 15:09
PROVIDERS: PCP Family Medicine; Referring Provider Family Medicine; Visit Provider Family Medicine
DX: Z12.31 Encounter for screening mammogram for malignant neoplasm of breast (principal)
CPT/HCPCS: 77063; 77067